=== PATIENT | female | born 1940 | race Caucasian/White ===

== ENCOUNTER 2017-03-02 22:17 | Inpatient (IN) | payer OTHER ==
[~2017-03-02] VITALS: Ht 162.6 cm; Wt 75.4 kg
[2017-03-02] MEDS ORDERED: morphine 4 MG/ML VIAL IV STA (23:24)
[2017-03-02] MEDS ORDERED: ONDANSETRON 4 MG INJ IV STA (23:24)
[2017-03-02] MEDS ORDERED: SOD CHLORIDE 0.9% 500 ML IV STA (23:24)
--- NOTE | 2017-03-02 23:33 | ERD ---
ER Documentation Chief Complaint Chief Complaint bib self, cc: abdominal pain, diarrhea, has atypical crohn's disease HPI Patient is a 76-year-old female who presents with sudden onset, constant, moderate abdominal distention starting 3 hours ago and associated with epigastric pain and 2 episodes of vomiting. She denies back pain, fever. She denies bloody emesis. She reports vomiting up her dinner. She states that she has not had a bowel movement in 3 days and does not think that she has been passing gas. She has history of Crohn's disease, which began after a C. difficile infection 2 years ago. ROS All systems reviewed and are negative except as per history of present illness. Allergies Allergies: Coded Allergies: No Known Allergy (Unverified , 03/02/17) PMhx/Soc Past medical history: Hypothyroidism, C. difficile colitis, Crohn's disease, DVT Past surgical history: Hysterectomy Social history: Denies tobacco or alcohol History of Surgery: No Anesthesia Reaction: No Hx Neurological Disorder: No Hx Respiratory Disorders: No Hx Cardiac Disorders: No Hx Psychiatric Problems: Yes (Depression) Hx Miscellaneous Medical Probl: Yes (Crohn's disease ) Hx Alcohol Use: No Hx Substance Use: No Hx Tobacco Use: No Smoking Status: Never smoker FmHx Family History: No coronary disease, No diabetes Physical Exam Vitals Vital Signs Date Time Temp Pulse Resp B/P Pulse Ox O2 Delivery O2 Flow Rate FiO2 03/03/17 02:40 78 18 122/70 100 Room Air 03/03/17 00:40 82 16 128/72 100 Room Air 03/02/17 22:22 98.5 81 18 132/60 100 Physical Exam Const: Alert, no acute distress Head: Atraumatic Eyes: Normal Conjunctiva, No pallor, no icterus ENT: Normal External Ears, Nose and Mouth. Moist mucous membranes Neck: Full range of motion..~ No meningismus. Resp: Clear to auscultation bilaterally, No wheezes, no rales Cardio: Regular rate and rhythm, no murmurs Abd: Soft, Tender in the epigastrium only, mildly distended, no rebound or guarding Skin: No petechiae or rashes Back: No midline or flank tenderness Ext: No cyanosis, or edema Neur: Awake and alert Psych: Normal Mood and Affect Result Diagram: 03/02/17 2340 10/21/17 2340 Results 24 hrs Laboratory Tests Test 03/02/17 23:40 03/02/17 23:45 White Blood Count 15.810^3/ul Red Blood Count 5.0710^6/ul Hemoglobin 14.9g/dl Hematocrit 45.2% Mean Corpuscular Volume 89.2fl Mean Corpuscular Hemoglobin 29.4pg Mean Corpuscular Hemoglobin Concent 33.0g/dl Red Cell Distribution Width 13.6% Platelet Count 32126^3/UL Mean Platelet Volume 9.8fl Neutrophils % 85.9% Lymphocytes % 5.8% Monocytes % 7.2% Eosinophils % 0.3% Basophils % 0.3% Nucleated Red Blood Cells % 0.0/100WBC Neutrophils # 13.610^3/ul Lymphocytes # 0.910^3/ul Monocytes # 1.110^3/ul Eosinophils # 0.010^3/ul Basophils # 0.110^3/ul Nucleated Red Blood Cells # 0.010^3/ul Sodium Level 141mmol/L Potassium Level 3.2mmol/L Chloride Level 99mmol/L Carbon Dioxide Level 35mmol/L Anion Gap 10 Blood Urea Nitrogen 22mg/dl Creatinine 0.90mg/dl Glucose Level 117mg/dl Calcium Level 10.1mg/dl Total Bilirubin 0.8mg/dl Direct Bilirubin 0.00mg/dl Indirect Bilirubin 0.8mg/dl Aspartate Amino Transf (AST/SGOT) 120IU/L Alanine Aminotransferase (ALT/SGPT) 75IU/L Alkaline Phosphatase 75IU/L Total Protein 7.7g/dl Albumin 4.2g/dl Globulin 3.50g/dl Albumin/Globulin Ratio 1.20 Lipase 52149J/L Urine Color YELLOW Urine Clarity CLEAR Urine pH 5.0 Urine Specific [place] 1.014 Urine Ketones NEGATIVEmg/dL Urine Nitrite NEGATIVEmg/dL Urine Bilirubin NEGATIVEmg/dL Urine Urobilinogen 1+mg/dL Urine Leukocyte Esterase 3+Yue/ul Urine Microscopic RBC 4/HPF Urine Microscopic WBC 31/HPF Urine Hemoglobin 1+mg/dL Urine Glucose NEGATIVEmg/dL Urine Total Protein NEGATIVEmg/dl Current Medications Medications (Trade) Dose Ordered Sig/Mirna Route PRN Reason Start Time Stop Time Status Last Admin Dose Admin Sodium Chloride (NS) 500 ml @ 500 mls/hr Q1H STAT IV 03/02/17 23:24 03/03/17 00:23 DC 03/03/17 00:06 Morphine Sulfate (morphine) 4 mg ONCE STAT IV 03/02/17 23:24 03/02/17 23:31 DC 03/03/17 00:06 Ondansetron HCl (Zofran Inj) 4 mg ONCE STAT IV 03/02/17 23:24 03/02/17 23:31 DC 03/03/17 00:06 Pantoprazole (Protonix Iv) 40 mg ONCE ONCE IV 03/03/17 00:00 03/03/17 00:01 DC 03/03/17 00:06 IV Flush 10 ml 10 ml STK-MED ONCE .ROUTE 03/03/17 00:27 03/03/17 00:28 DC 03/03/17 01:20 Sodium Chloride (NS) 100 ml @ ud STK-MED ONCE .ROUTE 03/03/17 00:27 03/03/17 00:28 DC 03/03/17 01:20 Iohexol 150 ml 150 ml STK-MED ONCE .ROUTE 03/03/17 00:27 03/03/17 00:28 DC 03/03/17 01:20 Ceftriaxone Sodium (Rocephin) 50 ml @ 100 mls/hr ONCE ONCE IVPB 03/03/17 03:00 03/03/17 03:29 DC 03/03/17 03:33 Procedures/MDM EKG read by me: Time 2338, rate 70 Rhythm: Normal sinus [place]: Normal Intervals: Normal ST-T waves: no ischemic changes Ectopy: No Q-waves: No Impression: No evidence of ischemia or arrhythmia MDM: Patient is a 76-year-old female who presents with acute abdominal pain and distention. Given her abdominal tenderness on exam, the skin was performed and shows evidence of pancreatitis with dilated common bile duct. There is no evidence of cholecystitis. Lipase is elevated, consistent with acute pancreatitis. She also has evidence of urinary tract infection on UTI. She was given IV fluids, made n.p.o., and given a dose of Rocephin. Urine culture was sent. Case was discussed with Dr. Dong, surgeon professor of environmental studies, who will see the patient. She will be admitted to [facility] for further management. She has stable vital signs, and is clinically well-appearing. She is given IV potassium repletion for hypokalemia, likely due to vomiting. Departure Diagnosis: Primary Impression: Gallstone pancreatitis Additional Impressions: Choledocholithiasis Elevated INR Hypokalemia Urinary tract infection Urinary tract infection type: acute cystitis Hematuria presence: without hematuria Qualified Code: N30.00 - Acute cystitis without hematuria Condition: Stable JEANE AGUSTIN MD Mar 02, 2017 23:33
[2017-03-03] MEDS ORDERED: PANTOPRAZOLE 40 MG INJ IV ONE
[2017-03-03] MEDS ORDERED: IOHEXOL 300MG/ML 150 ML BTL ONE (00:27)
[2017-03-03] MEDS ORDERED: SOD CHLORIDE 0.9% 100 ML ONE (00:27)
[2017-03-03 00:39] LABS: BASOPHIL # 0.1 10^3/ul (0.0-0.1); BASOPHILS % 0.3 % (0.0-2.0); EOSINOPHILS % 0.3 % (0.0-7.0); HEMATOCRIT 45.2 % (37.0-47.0); HEMOGLOBIN 14.9 g/dl (12.0-16.0); LYMPHOCYTES # 0.9 10^3/ul (0.8-2.9); LYMPHOCYTES % 5.8 % (15.0-51.0); MEAN CORPUSCULAR HEMOGLOBIN 29.4 pg (29.0-33.0); MEAN CORPUSCULAR VOLUME 89.2 fl (82.0-101.0); MEAN PLATELET VOLUME 9.8 fl (7.4-10.4); MONOCYTE # 1.1 10^3/ul (0.3-0.9); MONOCYTES % 7.2 % (0.0-11.0); NEUTROPHIL # 13.6 10^3/ul (1.6-7.5); NEUTROPHILS % 85.9 % (39.0-77.0); PLATELET COUNT 245 10^3/UL (140-415); RED BLOOD COUNT 5.07 10^6/ul (4.20-5.40); RED CELL DISTRIBUTION WIDTH 13.6 % (11.5-14.5); WHITE BLOOD COUNT 15.8 10^3/ul (4.8-10.8)
[2017-03-03 00:51] LABS: ALBUMIN 4.2 g/dl (3.3-4.9); ALBUMIN/GLOBULIN RATIO 1.2; BILIRUBIN,INDIRECT 0.8 mg/dl (0-1.1); BILIRUBIN,TOTAL 0.8 mg/dl (0.2-1.3); CALCIUM 10.1 mg/dl (8.4-10.2); CREATININE 0.9 mg/dl (0.44-1.00); POTASSIUM 3.2 mmol/L (3.5-5.1); TOTAL PROTEIN 7.7 g/dl (6.1-8.1)
[2017-03-03 00:52] LABS: ADD UMIC YES; UR ASCORBIC ACID NEGATIVE (NEGATIVE); UR BILIRUBIN (Dip) NEGATIVE (NEGATIVE); UR BLOOD (Dip) 1+ mg/dL (NEGATIVE); UR CLARITY CLEAR (CLEAR); UR COLOR YELLOW (YELLOW); UR GLUCOSE (Dip) NEGATIVE (NEGATIVE); UR KETONES (Dip) NEGATIVE (NEGATIVE); UR LEUKOCYTE ESTERASE (Dip) 3+ Leu/ul (NEGATIVE); UR NITRITE (Dip) NEGATIVE (NEGATIVE); UR RBC 4 /HPF (0-5); UR SPECIFIC GRAVITY (Dip) 1.014 (1.003-1.030); UR TOTAL PROTEIN (Dip) NEGATIVE (NEGATIVE); UR UROBILINOGEN (Dip) 1+ mg/dL (NEGATIVE)
--- NOTE | 2017-03-03 02:01 | RADRPT ---
PROCEDURE: CT Abdomen and Pelvis with contrast. CLINICAL INDICATION: Abdominal pain. TECHNIQUE: A CT scan of the abdomen and pelvis was performed with intravenous contrast. The patie nt was scanned following the uncomplicated intravenous administration of 90 cc of Omnipaque-300. Co rodriguez and sagittal reformatted images were obtained from the axial source images. Images were review ed on a high-resolution PACS workstation. CTDIvol: 10.97 mGy. DLP: 657.96 mGy-cm. One or more of the following dose reduction techniques were used: - Automated exposure control. - Adjustment of the mA and/or kV according to patient size. - Use of iterative reconstruction technique. COMPARISON: None. FINDINGS: There are mild atelectatic changes in the lower lungs. The liver is unremarkable. There are stones in the gallbladder. The gallbladder is distended but the re is no gallbladder wall thickening. There is intrahepatic and extrahepatic biliary ductal dilatati on (CBD: 1.0 cm ). The spleen is not enlarged. There is infiltraton of the peripancreatic fat, suggestive of pancreatitis. No pancreas hypoenhancem ent is identified to suggest pancreas necrosis. The pancreatic duct is not dilated. No pseudocyst is identified. The peripancreatic vessels are patent without evidence of aneurysm formation. The kidneys are normal in size. There is no perinephric fat stranding. No hydronephrosis is seen. Th e adrenal glands are unremarkable. The small and large bowel are normal in caliber. There is no bowel wall thickening. There is moderat e descending and sigmoid colon diverticulosis. The appendix is not identified. Artifact from bilateral hip arthroplasties limits evaluation of the lower pelvic structures. The ur inary bladder is unremarkable. The patient is status post hysterectomy. No adnexal mass is seen. No lymphadenopathy is identified. There is no ascites. No pneumoperitoneum is seen. There are mild a rterial calcifications. There is an IVC filter in place with extracaval penetration of the filter ti sharyn. No suspicious osseous lesion is idenitified. There is mild to moderate dextroscoliosis and spinal sp ondylosis. IMPRESSION: 1. Distended gallbladder containing gallstones. There is no evidence of cholecystitis. 2. Intrahepatic and extrahepatic biliary ductal dilatation (CBD: 1.0 cm). Correlation with bilirubi n levels is recommended. This could be further evaluated with MRCP or ERCP and endoscopic ultrasound , as clinically warranted. 3. Peripancreatic fat infiltration, suggestive of pancreatitis. Correlation with serum amylase and lipase levels is recommended. There is no pancreatic ductal dilatation. 4. Moderate descending and sigmoid colon diverticulosis. 5. Status post hysterectomy and bilateral hip arthroplasties. 6. Mild atherosclerotic arterial calcifications. 7. IVC filter in place with extracaval penetration of the filter tines. RPTAT: HTAR .Michael Gonzalez MD, MD Date Time Electronically viewed and signed by .Michael Gonzalez MD, MD on 03/03/2017 02:01 .R/
[2017-03-03] MEDS ORDERED: CEFTRIAXONE 1 GM/50 ML (PMX) 50 ML IVPB ONE (03:00)
[2017-03-03] MEDS ORDERED: POTASSIUM CHLORIDE 20 MEQ in SOD CHLORIDE 0.9% 100 ML IVPB ONE (03:30)
[2017-03-03] MEDS ORDERED: SOD CHLORIDE 0.9% 1,000 ML IV ONE (03:30)
[2017-03-03] MEDS ORDERED: ONDANSETRON 4 MG INJ IV PRN ×2 (03:30→06:00)
[2017-03-03] MEDS ORDERED: ACETAMINOPHEN 325 MG TAB PO PRN ×2 (03:30→06:00)
[2017-03-03 04:33] VITALS: TEMP 98.4
[2017-03-03 04:45] VITALS: BP 124/57; PULSE 64; RESP 16; Ht 162.6 cm; Wt 75.4 kg
[2017-03-03 05:04] LABS: INR 2.53; PROTIME 27.6 Sec (12.2-14.2); PT RATIO 2.2
[2017-03-03 05:05] LABS: PARTIAL THROMBOPLASTIN TIME 31.3 Sec (25.0-35.0)
[2017-03-03] MEDS ORDERED: SOD CHLORIDE 0.9% 1,000 ML IV SCH ×3 (05:31→18:00)
[2017-03-03] MEDS ORDERED: DOCUSATE SODIUM 100 MG CAP PO PRN (06:00)
[2017-03-03] MEDS ORDERED: PANTOPRAZOLE 40 MG INJ IV SCH (06:00)
[2017-03-03] MEDS ORDERED: BISACODYL (EC) 5 MG TAB PO PRN (06:00)
[2017-03-03] MEDS ORDERED: NACL 0.9% 3 ML SYG IV SCH (06:00)
[2017-03-03] MEDS: HYDROmorphONE 0.5 MG/0.5 ML SYG IV PRN ×2 (06:41→20:20)
--- NOTE | 2017-03-03 07:11 | HP ---
Date/Time of Note Date/Time of Note DATE: 03/03/17 TIME: 07:10 Assessment/Plan VTE Prophylaxis VTE Prophylaxis Intervention: SCD's Lines/Catheters IV Catheter Type (from [facility]): Peripheral IV Assessment/Plan Chief Complaint/Hosp Course This is a 76 year female being admitted to the [facility] floor for: #1 suspected gallstone pancreatitis: Patient has gallstones in the gallbladder, bile duct dilatation and pancreatitis. Lipase is 55,000 bilirubin is within normal values there is some elevation of LFTs. At the current time we will treat with aggressive fluid hydration of normal saline at 200 cc an hour. Will provide Dilaudid for IV pain control. Will consult GI. Will order an MRCP of the abdomen. Will check a lipid panel. A1c. #2 Leukocytosis: White blood cell count is 15,000. Likely secondary to #1. There is no signs of cholecystitis on the CAT scan. And she is afebrile. We will continue to monitor this. #3 Crohn's disease: Stable. Will need to confirm patient's home medications and restart as indicated #4 protein S deficiency: We will check INR daily. Will need to confirm patient' s home doses and restart medication. Patient needs to have a procedure will need to confirm with GI/general surgery for this. #5 hyperthyroidism: Again we will need to confirm patient's home medications and restart as indicated. Will check a TSH level. #6 DVT GI prophylaxis: SCDs, acid abiel. Will need to confirm patient's Coumadin dosage and restart as indicated. Further treatment strategy will be implemented as per the clinical course Problems: HPI/ROS Admit Date/Time Admit Date/Time Mar 03, 2017 at 03:27 Hx of Present Illness Chief complaint: Epigastric pain, abdominal distention Patient is a 76-year-old female who presents with sudden onset, constant, moderate abdominal distention starting 3 hours ago and associated with epigastric pain and 2 episodes of vomiting. She denies back pain, fever. She denies bloody emesis. She reports vomiting up her dinner. She states that she has not had a bowel movement in 3 days and does not think that she has been passing gas. She has history of Crohn's disease, which began after a C. difficile infection 2 years ago. Allergies: NKDA Medications: See MARK QUIROZ Const: As per HPI Eyes : No pain discharge or redness or change in visual acuity ENT: No pain, sore throat, congestion, congestion, dysphagia or discharge Respiratory: No shortness of breath, cough, sputum, wheezing, or pleuritic pain Cardiovascular: No chest pain, palpitation, PND, or edema GI : As per HPI Genitourinary: No dysuria, hematuria, flank pain , discharge or CVA tenderness Musculoskeletal: No joint pain, back pain, neck pain, restricted range of motion in neck or joints Skin: No rash, bruising or hives Neuro: No headache, dizziness, syncope, seizure, focal weakness Endocrine: No polyuria, polydipsia, temperature intolerance Psych: No hallucination, depression, anxiety or suicidal ideation PMH/Family/Social Past Medical History Crohn's disease, protein S deficiency, history of PE/DVT, gastric ulcer, hyperthyroidism, arthritis, history of fibroid Past Surgical History Bilateral hip replacement, hysterectomy, right knee surgery Family History Significant Family History: no pertinent family hx Social History Drinks daily 1 shot of whiskey. Smoking Status: Never smoker Drug Use: none Exam/Review of Systems Vital Signs Vitals Vital Signs Date Time Temp Pulse Resp B/P Pulse Ox O2 Delivery O2 Flow Rate FiO2 03/03/17 04:45 97.8 64 16 124/57 97 Room Air Exam Exam General: This is a pleasant 76-year-old female lying in bed in mild distress from pain HEENT: Atraumatic, normocephalic. The pupils are equal, round and reactive. Extraocular motor are intact Neck: Supple with full range of motion. No rigidity or meningismus Chest: Nontender Lungs: Clear to auscultation bilaterally no crackles rales or wheezing Heart: Normal S1-S2, Regular rhythm and rate. No murmur, S3, or S4 Abdomen: Soft, mild distention, moderate tenderness to palpation, hypoactive bowel sounds Extremities: Normal to inspection, no edema no cyanosis Neurologic: Normal mental status, speech normal, cranial nerves II through XII are intact, motor and sensory are intact, no focal weakness Additional Comments PROCEDURE: CT Abdomen and Pelvis with contrast. CLINICAL INDICATION: Abdominal pain. TECHNIQUE: A CT scan of the abdomen and pelvis was performed with intravenous contrast. The patient was scanned following the uncomplicated intravenous administration of 90 cc of Omnipaque-300. Coronal and sagittal reformatted images were obtained from the axial source images. Images were reviewed on a high-resolution PACS workstation. CTDIvol: 10.97 mGy. DLP: 657.96 mGy-cm. One or more of the following dose reduction techniques were used: - Automated exposure control. - Adjustment of the mA and/or kV according to patient size. - Use of iterative reconstruction technique. COMPARISON: None. FINDINGS: There are mild atelectatic changes in the lower lungs. The liver is unremarkable. There are stones in the gallbladder. The gallbladder is distended but there is no gallbladder wall thickening. There is intrahepatic and extrahepatic biliary ductal dilatation (CBD: 1.0 cm ). The spleen is not enlarged. There is infiltraton of the peripancreatic fat, suggestive of pancreatitis. No pancreas hypoenhancement is identified to suggest pancreas necrosis. The pancreatic duct is not dilated. No pseudocyst is identified. The peripancreatic vessels are patent without evidence of aneurysm formation. The kidneys are normal in size. There is no perinephric fat stranding. No hydronephrosis is seen. The adrenal glands are unremarkable. The small and large bowel are normal in caliber. There is no bowel wall thickening. There is moderate descending and sigmoid colon diverticulosis. The appendix is not identified. Artifact from bilateral hip arthroplasties limits evaluation of the lower pelvic structures. The urinary bladder is unremarkable. The patient is status post hysterectomy. No adnexal mass is seen. No lymphadenopathy is identified. There is no ascites. No pneumoperitoneum is seen. There are mild arterial calcifications. There is an IVC filter in place with extracaval penetration of the filter tines. No suspicious osseous lesion is idenitified. There is mild to moderate dextroscoliosis and spinal spondylosis. IMPRESSION: 1. Distended gallbladder containing gallstones. There is no evidence of cholecystitis. 2. Intrahepatic and extrahepatic biliary ductal dilatation (CBD: 1.0 cm). Correlation with bilirubin levels is recommended. This could be further evaluated with MRCP or ERCP and endoscopic ultrasound, as clinically warranted. 3. Peripancreatic fat infiltration, suggestive of pancreatitis. Correlation with serum amylase and lipase levels is recommended. There is no pancreatic ductal dilatation. 4. Moderate descending and sigmoid colon diverticulosis. 5. Status post hysterectomy and bilateral hip arthroplasties. 6. Mild atherosclerotic arterial calcifications. 7. IVC filter in place with extracaval penetration of the filter tines. RPTAT: HTAR .Michael Gonzalez MD, MD Date Time Electronically viewed and signed by .Michael Gonzalez MD, on 03/03/2017 02:01 .R/ CC: JEANE AGUSTIN MD Labs Result Diagram: 03/02/17 2340 03/02/17 2340 Medications Medications Current Medications Sodium Chloride (NS) 1,000 ml @ 175 mls/hr Q5H43M IV ; Start 03/03/17 at 05:31 ; Status UNV Ondansetron HCl (Zofran Inj) 4 mg Q6H PRN IV NAUSEA AND/OR VOMITING; Start at 06:00; Status UNV Acetaminophen (Tylenol Tab) 650 mg Q6H PRN PO PAIN LEVEL 1-3 OR FEVER; Start 03/03/17 at 06:00; Status UNV Hydromorphone HCl (Dilaudid) 0.5 mg Q4H PRN IV SEVERE PAIN LEVEL 7-10; Start 03/03/17 at 06:00; Status UNV Docusate Sodium (Colace) 100 mg Q12H PRN PO CONSTIPATION; Start 03/03/17 at 06 :00; Status UNV Bisacodyl (Dulcolax) 5 mg DAILY PRN PO CONSTIPATION; Start 03/03/17 at 06:00; Status UNV Pantoprazole (Protonix Iv) 40 mg DAILY@06 IV ; Start 03/03/17 at 06:00; Status UNV BETY CUELLAR Mar 03, 2017 07:11
--- NOTE | 2017-03-03 07:33 | CONS ---
Date/Time of Note Date/Time of Note DATE: 03/03/17 TIME: 07:27 Assessment/Plan Assessment/Plan Chief Complaint/Hosp Course Impression: 1. gallstone pancreatitis 2. r/o CBD or pancreatic duct stone 3. UTI 4. epigastric pain Recommendations: 1. f/u MRCP results 2. IVF 3. NPO 4. most of time, treatment of gallstone pancreatitis even if there is an obstructing stone is conservative therapy. ERCP not indicated in uncomplicated cases due to worries of post-ERCP pancreatitis which can worsen the acute pancreatitis. ERCP is indicated only if there is an obstructing stone AND lipase worsening. 5. Dr. Mayo to resume care of this patient tomorrow. Problems: Consultation Date/Type/Reason Admit Date/Time Mar 03, 2017 at 03:27 Date of Consultation: Mar 03, 2017 Type of Consultation: GI Reason for Consultation gallstone pancreatitis Hx of Present Illness 76-year-old female who is admitted for severe epigastric pain and abdominal distension. She presents with sudden onset, constant, moderate abdominal distention starting 3 hours ago and associated with epigastric pain and 2 episodes of vomiting. No back pain, fever. She denies bloody emesis. She reports vomiting up her dinner. She states that she has not had a bowel movement in 3 days and does not think that she has been passing gas. She has history of Crohn's disease, which began after a C. difficile infection 2 years ago. No melena, coffee ground emesis, hematemesis, hematochezia. All point ros administered, pertinent positives and negatives in HPI otherwise negative. Past Medical History C. diff colitis, Crohn's disease, DVT Medical History: hypothyroid, pancreatitis Past Surgical History hysterectomy Family History Significant Family History: no pertinent family hx Social History Alcohol Use: none Smoking Status: Never smoker Drug Use: none Exam/Review of Systems Vital Signs Vitals Vital Signs Date Time Temp Pulse Resp B/P Pulse Ox O2 Delivery O2 Flow Rate FiO2 03/03/17 04:45 97.8 64 16 124/57 97 Room Air Exam Constitutional: alert, obese, oriented, well developed Psych: nl mood/affect, no complaints Head: atraumatic, normocephalic Eyes: EOMI, nl conjunctiva, nl lids, nl sclera ENMT: mucosa pink and moist, nl external ears & nose, nl lips & teeth, nl nasal mucosa & septum Neck: non-tender, supple Respiratory: clear to auscultation, normal air movement Cardiovascular: nl pulses, regular rate and rhythm Gastrointestinal: bowel sounds, soft, tender (epigastric) Musculoskeletal: nl extremities to inspection, nl gait and stance Extremities: normal pulses Neurological: nl mental status, nl speech, nl strength Results Result Diagram: 03/02/17 2340 03/02/17 2340 Results 24 hrs Laboratory Tests Test 03/02/17 23:40 03/02/17 23:45 03/03/17 04:38 White Blood Count 15.8 H Red Blood Count 5.07 Hemoglobin 14.9 Hematocrit 45.2 Mean Corpuscular Volume 89.2 Mean Corpuscular Hemoglobin 29.4 Mean Corpuscular Hemoglobin Concent 33.0 Red Cell Distribution Width 13.6 Platelet Count 245 Mean Platelet Volume 9.8 Neutrophils % 85.9 H Lymphocytes % 5.8 L Monocytes % 7.2 Eosinophils % 0.3 Basophils % 0.3 Nucleated Red Blood Cells % 0.0 Neutrophils # 13.6 H Lymphocytes # 0.9 Monocytes # 1.1 H Eosinophils # 0.0 Basophils # 0.1 Nucleated Red Blood Cells # 0.0 Sodium Level 141 Potassium Level 3.2 L Chloride Level 99 Carbon Dioxide Level 35 H Anion Gap 10 Blood Urea Nitrogen 22 H Creatinine 0.90 Glucose Level 117 Calcium Level 10.1 Total Bilirubin 0.8 Direct Bilirubin 0.00 Indirect Bilirubin 0.8 Aspartate Amino Transf (AST/SGOT) 120 H Alanine Aminotransferase (ALT/SGPT) 75 H Alkaline Phosphatase 75 Total Protein 7.7 Albumin 4.2 Globulin 3.50 H Albumin/Globulin Ratio 1.20 Lipase 02407 H Urine Color YELLOW Urine Clarity CLEAR Urine pH 5.0 Urine Specific [place] 1.014 Urine Ketones NEGATIVE Urine Nitrite NEGATIVE Urine Bilirubin NEGATIVE Urine Urobilinogen 1+ H Urine Leukocyte Esterase 3+ H Urine Microscopic RBC 4 Urine Microscopic WBC 31 H Urine Hemoglobin 1+ H Urine Glucose NEGATIVE Urine Total Protein NEGATIVE Prothrombin Time 27.6 H Prothrombin Time Ratio 2.2 INR International Normalized Ratio 2.53 Activated Partial Thromboplast Time 31.3 Medications Medications Current Medications Sodium Chloride (NS) 1,000 ml @ 200 mls/hr Q5H IV Last administered on t 06:22; Admin Dose 175 MLS/HR; Start 03/03/17 at 05:31 Ondansetron HCl (Zofran Inj) 4 mg Q6H PRN IV NAUSEA AND/OR VOMITING; Start at 06:00 Acetaminophen (Tylenol Tab) 650 mg Q6H PRN PO PAIN LEVEL 1-3 OR FEVER; Start 03/03/17 at 06:00 Hydromorphone HCl (Dilaudid) 0.5 mg Q4H PRN IV SEVERE PAIN LEVEL 7-10 Last administered on 03/03/17 06:41; Admin Dose 0.5 MG; Start 03/03/17 at 06:00 Docusate Sodium (Colace) 100 mg Q12H PRN PO CONSTIPATION; Start 03/03/17 at 06 :00 Bisacodyl (Dulcolax) 5 mg DAILY PRN PO CONSTIPATION; Start 03/03/17 at 06:00 Pantoprazole 40 mg 40 mg DAILY@06 IV Last administered on 03/03/17 06:22; Admin Dose 40 MG; Start 03/03/17 at 06:00 Ciprofloxacin/ Dextrose (Cipro Ivpb) 200 ml @ 200 mls/hr Q12 IVPB ; Start at 09:00 THELMA HAHN MD Mar 03, 2017 07:33
[2017-03-03 07:35] VITALS: BP 92/49; RESP 18
[2017-03-03] MEDS ORDERED: CIPROFLOXACIN 400MG/D5W 200 ML IVPB SCH (09:00)
[2017-03-03 09:14] LABS: CHOL/HDL RATIO 2.4 RATIO; MAGNESIUM 1.9 mg/dl (1.7-2.5)
--- NOTE | 2017-03-03 09:19 | RADRPT ---
PROCEDURE: XR Chest. CLINICAL INDICATION: Shortness of breath. TECHNIQUE: Single frontal view. COMPARISON: None. FINDINGS: There is mild atelectasis at the lung bases. The lungs are otherwise clear. The heart size is normal. There is no pleural effusion. There is no pneumothorax. IMPRESSION: 1. Mild atelectasis at the lung bases. 2. Otherwise normal chest x-ray. RPTAT: QQ .Bull Yates MD, MD Date Time Electronically viewed and signed by .Bull Yates MD, on 03/03/2017 09:19 .R/
[2017-03-03] MEDS ORDERED: POTASSIUM CHLORIDE 20 MEQ in LACTATED RINGER'S 1,000 ML IV SCH (09:30)
[2017-03-03 09:45] LABS: THYROID STIMULATING HORMONE 0.375 MIU/L (0.465-4.680)
[2017-03-03] MEDS ORDERED: LORAZEPAM 2 MG INJ IV ONE (10:30)
--- NOTE | 2017-03-03 14:21 | RADRPT ---
PROCEDURE: MR Abdomen and MRCP. CLINICAL INDICATION: Right upper quadrant pain. TECHNIQUE: MRI abdomen without contrast and MRCP was performed on a 1.5 [place]ira high field scanner. Routine axial, sagittal and coronal sequences were obtained. 3-D coronal rotating MIP images of the biliary tree are available for review. COMPARISON: None available FINDINGS: MRI Abdomen: The exam is significantly limited secondary to respiratory motion artifact. The liver is normal in size and homogeneous in signal intensity. No liver mass lesion or intrahepatic biliary dilatation is seen. The spleen is normal in size and homogeneous in signal intensity. The stomach is partially collapsed but grossly unremarkable. The pancreas is unremarkable, as best seen. The kidneys are unremarkable. There is no evidence of hydronephrosis, hydroureter, renal mass, or r enal calculi. The adrenal glands and kidneys are symmetric and appear normal. The aorta is of normal caliber. There is no retroperitoneal lymphadenopathy. The bowel and mesentery, as visualized, are unremarkable. Small free fluid in the left pericolic gutter, around the spleen, Morison's pouch and around the inf erior aspect of the liver. MRCP: The gallbladder contains multiple sub centimeter gallstones. The biliary tree is not dilated. The common bile duct measures 7 mm to the level of the ampulla of V ater. No intrahepatic or extrahepatic biliary ductal dilatation is present. The pancreatic duct is unremarkable. IMPRESSION: 1. Significantly limited exam secondary to respiratory motion artifact. 2. Cholelithiasis, without definite evidence of cholecystitis or choledocholithiasis. 3. Small ascites in the upper quadrants of the abdomen. 4. Trace right pleural effusion. 5. Benign-appearing renal cysts measuring up to 9 mm. RPTAT: QQ .Matt Russ MD, MD Date Time Electronically viewed and signed by .Matt Russ MD, MD on 03/03/2017 14:20 .M/
[2017-03-03] MEDS ORDERED: HEPARIN 1000 UNITS/ML 10 ML INJ IV PRN ×2 (15:00)
[2017-03-03 15:28] LABS: BASOPHILS % 0.3 % (0.0-2.0); EOSINOPHILS # 0.1 10^3/ul (0.0-0.5); EOSINOPHILS % 1.5 % (0.0-7.0); HEMATOCRIT 37.8 % (37.0-47.0); HEMOGLOBIN 12.2 g/dl (12.0-16.0); LYMPHOCYTES # 0.9 10^3/ul (0.8-2.9); LYMPHOCYTES % 14.8 % (15.0-51.0); MEAN CORPUSCULAR HEMOGLOBIN 29.5 pg (29.0-33.0); MEAN CORPUSCULAR HGB CONC 32.3 g/dl (32.0-37.0); MEAN CORPUSCULAR VOLUME 91.3 fl (82.0-101.0); MEAN PLATELET VOLUME 9.6 fl (7.4-10.4); MONOCYTE # 0.4 10^3/ul (0.3-0.9); MONOCYTES % 7.1 % (0.0-11.0); NEUTROPHIL # 4.5 10^3/ul (1.6-7.5); PLATELET COUNT 160 10^3/UL (140-415); RED BLOOD COUNT 4.14 10^6/ul (4.20-5.40); RED CELL DISTRIBUTION WIDTH 13.8 % (11.5-14.5); WHITE BLOOD COUNT 5.9 10^3/ul (4.8-10.8)
[2017-03-03 15:43] LABS: INR 2.84; PROTIME 30.2 Sec (12.2-14.2); PT RATIO 2.4
[2017-03-03 15:44] LABS: PARTIAL THROMBOPLASTIN TIME 45.5 Sec (25.0-35.0)
[2017-03-03] MEDS ORDERED: NS + KCL 20 MEQ 1,000 ML IV SCH (16:30)
[2017-03-03] MEDS: HEPARIN 25000 UNITS/250 ML 250 ML IV SCH (16:53)
--- NOTE | 2017-03-03 17:05 | PN ---
Date/Time of Note Date/Time of Note DATE: 03/03/17 TIME: 16:46 Assessment/Plan VTE Prophylaxis VTE Prophylaxis Intervention: SCD's Lines/Catheters IV Catheter Type (from Nrsg): Peripheral IV Assessment/Plan Assessment/Plan 76 yo F with h/o IBD (Crohns), protein C and S deficiency admitted for abd pain , found to have pancreatitis. Etio 2/2 IBD v gallstone. #pancreatitis: IVFs, ADATas evidence suggests that early enteral feeding in setting of acute pancreatitis does not increase risk of adverse event re etio, gallstones v IBD. Both GI and gen surg on consult #gallstones/cholecystitis: no evidence of biliary obstruction or cholecystitis gen surg has pt technically on schedule for Saturday for lap nina pt has no hx CKD, Dm2, CHF, CAD, CVA. She is unsure if she can climb a flight of stairs without stopping 2/2 chronic hip pain .Defer further consideration for perioperative cardiac clearance at this time as pt and son uncertain if they want to pursue lap nina during this admission or as outpatient #protein C and S deficiency: per surgeon request will hold warfarin and start heparin drip for perioperative purposes. of note, if patient elects NOT to persue lap nina, would resume Coumadin at home dose of 1-2 mg PO daily #IBD: cont home prednisone (dose affirmed with Josemanuel) #hyperthyroid: TSH low, cont home methimazole #HTN: cont home BP meds #depression/insomnia/chronic pain: cont home baclofen, bupropion, tazadolene Exam/Review of Systems Vital Signs Vitals Vital Signs Date Time Temp Pulse Resp B/P Pulse Ox O2 Delivery O2 Flow Rate FiO2 03/03/17 07:35 97.7 64 18 92/49 97 03/03/17 04:45 Room Air Results Result Diagram: 03/03/17 1506 03/02/17 2340 Results 24 hrs Laboratory Tests Test 03/02/17 23:40 03/02/17 23:45 03/03/17 04:38 03/03/17 08:09 White Blood Count 15.8 H Red Blood Count 5.07 Hemoglobin 14.9 Hematocrit 45.2 Mean Corpuscular Volume 89.2 Mean Corpuscular Hemoglobin 29.4 Mean Corpuscular Hemoglobin Concent 33.0 Red Cell Distribution Width 13.6 Platelet Count 245 Mean Platelet Volume 9.8 Neutrophils % 85.9 H Lymphocytes % 5.8 L Monocytes % 7.2 Eosinophils % 0.3 Basophils % 0.3 Nucleated Red Blood Cells % 0.0 Neutrophils # 13.6 H Lymphocytes # 0.9 Monocytes # 1.1 H Eosinophils # 0.0 Basophils # 0.1 Nucleated Red Blood Cells # 0.0 Sodium Level 141 Potassium Level 3.2 L Chloride Level 99 Carbon Dioxide Level 35 H Anion Gap 10 Blood Urea Nitrogen 22 H Creatinine 0.90 Glucose Level 117 Calcium Level 10.1 Total Bilirubin 0.8 Direct Bilirubin 0.00 Indirect Bilirubin 0.8 Aspartate Amino Transf (AST/SGOT) 120 H Alanine Aminotransferase (ALT/SGPT) 75 H Alkaline Phosphatase 75 Total Protein 7.7 Albumin 4.2 Globulin 3.50 H Albumin/Globulin Ratio 1.20 Lipase 30516 H 25241 H Urine Color YELLOW Urine Clarity CLEAR Urine pH 5.0 Urine Specific [place] 1.014 Urine Ketones NEGATIVE Urine Nitrite NEGATIVE Urine Bilirubin NEGATIVE Urine Urobilinogen 1+ H Urine Leukocyte Esterase 3+ H Urine Microscopic RBC 4 Urine Microscopic WBC 31 H Urine Hemoglobin 1+ H Urine Glucose NEGATIVE Urine Total Protein NEGATIVE Prothrombin Time 27.6 H Prothrombin Time Ratio 2.2 INR International Normalized Ratio 2.53 Activated Partial Thromboplast Time 31.3 Hemoglobin A1c 5.6 Magnesium Level 1.9 Triglycerides Level 46 Cholesterol Level 151 LDL Cholesterol, Calculated 81 HDL Cholesterol 61 Cholesterol/HDL Ratio 2.4 Thyroid Stimulating Hormone (TSH) 0.375 L Test 03/03/17 15:06 White Blood Count 5.9 # Red Blood Count 4.14 L Hemoglobin 12.2 Hematocrit 37.8 Mean Corpuscular Volume 91.3 Mean Corpuscular Hemoglobin 29.5 Mean Corpuscular Hemoglobin Concent 32.3 Red Cell Distribution Width 13.8 Platelet Count 160 # Mean Platelet Volume 9.6 Neutrophils % 76.0 Lymphocytes % 14.8 L Monocytes % 7.1 Eosinophils % 1.5 Basophils % 0.3 Nucleated Red Blood Cells % 0.0 Neutrophils # 4.5 Lymphocytes # 0.9 Monocytes # 0.4 Eosinophils # 0.1 Basophils # 0.0 Nucleated Red Blood Cells # 0.0 Prothrombin Time 30.2 H Prothrombin Time Ratio 2.4 INR International Normalized Ratio 2.84 Activated Partial Thromboplast Time 45.5 H Medications Medications Current Medications Ondansetron HCl (Zofran Inj) 4 mg Q6H PRN IV NAUSEA AND/OR VOMITING; Start at 06:00 Acetaminophen (Tylenol Tab) 650 mg Q6H PRN PO PAIN LEVEL 1-3 OR FEVER; Start 03/03/17 at 06:00 Hydromorphone HCl (Dilaudid) 0.5 mg Q4H PRN IV SEVERE PAIN LEVEL 7-10 Last administered on 03/03/17 06:41; Admin Dose 0.5 MG; Start 03/03/17 at 06:00 Docusate Sodium (Colace) 100 mg Q12H PRN PO CONSTIPATION; Start 03/03/17 at 06 :00 Bisacodyl 5 mg 5 mg DAILY PRN PO CONSTIPATION; Start 03/03/17 at 06:00 Ciprofloxacin/ Dextrose 200 ml @ 200 mls/hr Q12 IVPB Last administered on 08:23; Admin Dose 200 MLS/HR; Start 03/03/17 at 09:00 Potassium Chloride/Sodium Chloride (NS-KCl 20 Meq) 1,000 ml @ 150 mls/hr Q6H40M IV ; Start 03/03/17 at 16:30 DANNA HURTADO MD Mar 03, 2017 17:04
[2017-03-03 19:15] VITALS: BP 113/53; RESP 19
--- NOTE | 2017-03-03 21:11 | CONS ---
Date/Time of Note Date/Time of Note DATE: 03/03/17 TIME: 20:49 Assessment/Plan Assessment/Plan Chief Complaint/Hosp Course abd pain Problems: (1) Acute gallstone pancreatitis Onset Date: ~ 03/01/2017 Status: Acute Comment: improving. MRCP shows gallstones in GB but no CBD stones; patient likely passed small stones causing pancreatitis. Abd pain unlikely due to Crohn's or UC and most likely etiology is gallstones in absence of EtOH drinking. MRCP not suggestive of persistent CBD stones though study not optimal per my discussion with radiologist. Patient requires laparoscopic cholecystectomy with intraoperative cholangiogram prior to discharge Place patient on heparin drip given history of hypercoagulability disorder Prot C/S deficiency and reverse coumadin with Vitamin K Clear liquid diet OK Once Lipase improved and abdominal pain resolved, will take for lap cholecystectomy with IOC, hopefully by Saturday Risks and benefits of surgical therapy explained to patient and son. They agreed to proceed with surgery after all questions were answered. Please make patient NPO after midnight Saturday for possible surgery on Saturday (2) Inflammatory bowel disease (ulcerative colitis) Status: Chronic Comment: wean steroids as tolerated for surgery May require stress dose steroids periop UC unlikely contributing to current symptoms of abd pain given lipase levels and CT scan Qualifiers: (3) Protein S deficiency Status: Chronic Comment: reverse coumadin and start heparin drip. Additional Assessment/Plan reverse warfarin heparin drip; hold 4 hours before surgery and restart POD 1 if hgb stable trend lipase Please minimize steroid use as pt will have surgery coming up. i have placed pt on clear liquid diet for now 50 min spent treating patient, discussing case with medicine, GI, and radiology colleagues, and answering all questions with patient at bedside and son overphone and coordinating plan with RN team and hospitalist service. Cont'd Hospitalization Reason: will require surgery for gallstone pancreatitis , prior to discharge Consultation Date/Type/Reason Admit Date/Time Mar 03, 2017 at 03:27 Date of Consultation: Mar 03, 2017 Type of Consultation: GENERAL SURGERY Reason for Consultation gallstone pancreatitis Referring Provider: BETY CUELLAR Hx of Present Illness 76 F p/w 2 days of LLQ abd pain accompanied with nausea vomiting. Denies f/c. Workup revealed gallstones and elevated lipase concerning for gallstone pancreatitis. MRCP shows no ductal defects and TBili is upper limit normal at 1.0. Surgery consultation was requested for lap cholecystectomy. Constitutional: poor po, requiring IVF, No chills, No diaphoresis, No febrile Eyes: no complaints ENT: no complaints Respiratory: no complaints Cardiovascular: No chest pain, No palpitations Gastrointestinal: decreased appetite, flatus, nausea, pain, passing stool, vomiting, No blood, No constipation, No diarrhea Genitourinary: No bleeding, No discharge, No dysuria, No flank pain, No hematuria Musculoskeletal: back pain, No neck pain Neurologic: no complaints Psychological: nl mood/affect, no complaints Immunologic: other (inflammatory bowel disease/UC) Past Medical History Medical History: hypothyroid, pancreatitis, other (ulcerative colitis/inflamm bowel dz for which pt is on Prednisone; C Diff; Prot C/S deficiency causing hypercoagulability) Past Surgical History total abd hysterectomy many years ago: lower midline incision; two total hip replacements (bilat) years ago Family History Significant Family History: no pertinent family hx Social History Alcohol Use: none Smoking Status: Never smoker Drug Use: none Other Social History son is next of kin Exam/Review of Systems Vital Signs Vitals Vital Signs Date Time Temp Pulse Resp B/P Pulse Ox O2 Delivery O2 Flow Rate FiO2 03/03/17 19:15 98.1 67 19 113/53 92 03/03/17 04:45 Room Air Laboratory Tests Test 03/02/17 23:40 03/03/17 15:06 Blood Urea Nitrogen 22mg/dl Carbon Dioxide Level 35mmol/L Chloride Level 99mmol/L Creatinine 0.90mg/dl Glucose Level 117mg/dl Hematocrit 45.2% 37.8% Hemoglobin 14.9g/dl 12.2g/dl Platelet Count 35946^3/UL 96602^3/UL Potassium Level 3.2mmol/L Sodium Level 141mmol/L White Blood Count 15.810^3/ul 5.910^3/ul Laboratory Tests Test 03/02/17 23:40 03/02/17 23:45 03/03/17 04:38 03/03/17 08:09 White Blood Count 15.8 H Red Blood Count 5.07 Hemoglobin 14.9 Hematocrit 45.2 Mean Corpuscular Volume 89.2 Mean Corpuscular Hemoglobin 29.4 Mean Corpuscular Hemoglobin Concent 33.0 Red Cell Distribution Width 13.6 Platelet Count 245 Mean Platelet Volume 9.8 Neutrophils % 85.9 H Lymphocytes % 5.8 L Monocytes % 7.2 Eosinophils % 0.3 Basophils % 0.3 Nucleated Red Blood Cells % 0.0 Neutrophils # 13.6 H Lymphocytes # 0.9 Monocytes # 1.1 H Eosinophils # 0.0 Basophils # 0.1 Nucleated Red Blood Cells # 0.0 Sodium Level 141 Potassium Level 3.2 L Chloride Level 99 Carbon Dioxide Level 35 H Anion Gap 10 Blood Urea Nitrogen 22 H Creatinine 0.90 Glucose Level 117 Calcium Level 10.1 Total Bilirubin 0.8 Direct Bilirubin 0.00 Indirect Bilirubin 0.8 Aspartate Amino Transf (AST/SGOT) 120 H Alanine Aminotransferase (ALT/SGPT) 75 H Alkaline Phosphatase 75 Total Protein 7.7 Albumin 4.2 Globulin 3.50 H Albumin/Globulin Ratio 1.20 Lipase 59113 H 66292 H Urine Color YELLOW Urine Clarity CLEAR Urine pH 5.0 Urine Specific [place] 1.014 Urine Ketones NEGATIVE Urine Nitrite NEGATIVE Urine Bilirubin NEGATIVE Urine Urobilinogen 1+ H Urine Leukocyte Esterase 3+ H Urine Microscopic RBC 4 Urine Microscopic WBC 31 H Urine Hemoglobin 1+ H Urine Glucose NEGATIVE Urine Total Protein NEGATIVE Prothrombin Time 27.6 H Prothrombin Time Ratio 2.2 INR International Normalized Ratio 2.53 Activated Partial Thromboplast Time 31.3 Hemoglobin A1c 5.6 Magnesium Level 1.9 Triglycerides Level 46 Cholesterol Level 151 LDL Cholesterol, Calculated 81 HDL Cholesterol 61 Cholesterol/HDL Ratio 2.4 Thyroid Stimulating Hormone (TSH) 0.375 L Test 03/03/17 15:06 White Blood Count 5.9 # Red Blood Count 4.14 L Hemoglobin 12.2 Hematocrit 37.8 Mean Corpuscular Volume 91.3 Mean Corpuscular Hemoglobin 29.5 Mean Corpuscular Hemoglobin Concent 32.3 Red Cell Distribution Width 13.8 Platelet Count 160 # Mean Platelet Volume 9.6 Neutrophils % 76.0 Lymphocytes % 14.8 L Monocytes % 7.1 Eosinophils % 1.5 Basophils % 0.3 Nucleated Red Blood Cells % 0.0 Neutrophils # 4.5 Lymphocytes # 0.9 Monocytes # 0.4 Eosinophils # 0.1 Basophils # 0.0 Nucleated Red Blood Cells # 0.0 Prothrombin Time 30.2 H Prothrombin Time Ratio 2.4 INR International Normalized Ratio 2.84 Activated Partial Thromboplast Time 45.5 H Exam Constitutional: alert, oriented Psych: nl mood/affect, No confusion Head: atraumatic, normocephalic Eyes: EOMI, PERRL, nl conjunctiva, nl lids, nl sclera, No icteric ENMT: nl external ears & nose, nl lips & teeth, nl nasal mucosa & septum Neck: non-tender, supple Respiratory: clear to auscultation, normal air movement Cardiovascular: nl pulses, regular rate and rhythm Gastrointestinal: nl liver, spleen, soft, surgical scars (lower midline), tender (LLQ), No distended, No firm, No hepatomegaly, No mass, No non-tender, No rebound or guarding Musculoskeletal: nl extremities to inspection, nl gait and stance Extremities: normal pulses Neurological: POOL HAND II-XII intact, nl mental status, nl speech, nl strength Skin: nl turgor, rash or lesions Results Result Diagram: 03/03/17 1506 03/02/17 2340 Results 24 hrs Laboratory Tests Test 03/02/17 23:40 03/02/17 23:45 03/03/17 04:38 03/03/17 08:09 White Blood Count 15.8 H Red Blood Count 5.07 Hemoglobin 14.9 Hematocrit 45.2 Mean Corpuscular Volume 89.2 Mean Corpuscular Hemoglobin 29.4 Mean Corpuscular Hemoglobin Concent 33.0 Red Cell Distribution Width 13.6 Platelet Count 245 Mean Platelet Volume 9.8 Neutrophils % 85.9 H Lymphocytes % 5.8 L Monocytes % 7.2 Eosinophils % 0.3 Basophils % 0.3 Nucleated Red Blood Cells % 0.0 Neutrophils # 13.6 H Lymphocytes # 0.9 Monocytes # 1.1 H Eosinophils # 0.0 Basophils # 0.1 Nucleated Red Blood Cells # 0.0 Sodium Level 141 Potassium Level 3.2 L Chloride Level 99 Carbon Dioxide Level 35 H Anion Gap 10 Blood Urea Nitrogen 22 H Creatinine 0.90 Glucose Level 117 Calcium Level 10.1 Total Bilirubin 0.8 Direct Bilirubin 0.00 Indirect Bilirubin 0.8 Aspartate Amino Transf (AST/SGOT) 120 H Alanine Aminotransferase (ALT/SGPT) 75 H Alkaline Phosphatase 75 Total Protein 7.7 Albumin 4.2 Globulin 3.50 H Albumin/Globulin Ratio 1.20 Lipase 15564 H 61087 H Urine Color YELLOW Urine Clarity CLEAR Urine pH 5.0 Urine Specific [place] 1.014 Urine Ketones NEGATIVE Urine Nitrite NEGATIVE Urine Bilirubin NEGATIVE Urine Urobilinogen 1+ H Urine Leukocyte Esterase 3+ H Urine Microscopic RBC 4 Urine Microscopic WBC 31 H Urine Hemoglobin 1+ H Urine Glucose NEGATIVE Urine Total Protein NEGATIVE Prothrombin Time 27.6 H Prothrombin Time Ratio 2.2 INR International Normalized Ratio 2.53 Activated Partial Thromboplast Time 31.3 Hemoglobin A1c 5.6 Magnesium Level 1.9 Triglycerides Level 46 Cholesterol Level 151 LDL Cholesterol, Calculated 81 HDL Cholesterol 61 Cholesterol/HDL Ratio 2.4 Thyroid Stimulating Hormone (TSH) 0.375 L Test 03/03/17 15:06 White Blood Count 5.9 # Red Blood Count 4.14 L Hemoglobin 12.2 Hematocrit 37.8 Mean Corpuscular Volume 91.3 Mean Corpuscular Hemoglobin 29.5 Mean Corpuscular Hemoglobin Concent 32.3 Red Cell Distribution Width 13.8 Platelet Count 160 # Mean Platelet Volume 9.6 Neutrophils % 76.0 Lymphocytes % 14.8 L Monocytes % 7.1 Eosinophils % 1.5 Basophils % 0.3 Nucleated Red Blood Cells % 0.0 Neutrophils # 4.5 Lymphocytes # 0.9 Monocytes # 0.4 Eosinophils # 0.1 Basophils # 0.0 Nucleated Red Blood Cells # 0.0 Prothrombin Time 30.2 H Prothrombin Time Ratio 2.4 INR International Normalized Ratio 2.84 Activated Partial Thromboplast Time 45.5 H Imaging Free Text/Dictation MRCP: 1. Significantly limited exam secondary to respiratory motion artifact. 2. Cholelithiasis, without definite evidence of cholecystitis or choledocholithiasis. 3. Small ascites in the upper quadrants of the abdomen. 4. Trace right pleural effusion. 5. Benign-appearing renal cysts measuring up to 9 mm. Medications Medications Current Medications Ondansetron HCl (Zofran Inj) 4 mg Q6H PRN IV NAUSEA AND/OR VOMITING; Start at 06:00 Acetaminophen (Tylenol Tab) 650 mg Q6H PRN PO PAIN LEVEL 1-3 OR FEVER; Start 03/03/17 at 06:00 Hydromorphone HCl (Dilaudid) 0.5 mg Q4H PRN IV SEVERE PAIN LEVEL 7-10 Last administered on 03/03/17t 20:20; Admin Dose 0.5 MG; Start 03/03/17 at 06:00 Docusate Sodium (Colace) 100 mg Q12H PRN PO CONSTIPATION; Start 03/03/17 at 06 :00 Bisacodyl (Dulcolax) 5 mg DAILY PRN PO CONSTIPATION; Start 03/03/17 at 06:00 Bupropion HCl (Wellbutrin Sr) 150 mg BID PO ; Start 03/03/17 at 21:00 Triamterene/HCTZ (Dyazide) 1 cap DAILY PO ; Start 03/04/17 at 09:00 Methimazole (Tapazole) 5 mg DAILY PO ; Start 03/04/17 at 09:00 Baclofen (Lioresal) 10 mg TID PO ; Start 03/03/17 at 21:00 Trazodone HCl (Desyrel) 50 mg HS PO ; Start 03/03/17 at 21:00 Prednisone 4 mg 4 mg DAILY PO ; Start 03/04/17 at 09:00 Sodium Chloride (NS) 1,000 ml @ 150 mls/hr Q6H40M IV ; Start 03/03/17 at 22:00 JT MOSS Mar 03, 2017 21:00
[2017-03-03] MEDS: traZODone 50 MG TAB PO SCH (21:28)
[2017-03-03] MEDS: BACLOFEN 10 MG TAB PO SCH (21:28)
[2017-03-03] MEDS: BUPROPION (SR) 150 MG TAB PO SCH (21:43)
[2017-03-03] MEDS: SOD CHLORIDE 0.9% 1,000 ML IV SCH (22:39)
[2017-03-04 00:15] LABS: INR 2.54; PROTIME 27.7 Sec (12.2-14.2); PT RATIO 2.2
[2017-03-04 00:50] LABS: PARTIAL THROMBOPLASTIN TIME > 180.0 Sec (25.0-35.0)
[2017-03-04 02:10] VITALS: BP 155/67; RESP 18
[2017-03-04] MEDS: SOD CHLORIDE 0.9% 1,000 ML IV SCH ×4 (06:11→19:20)
[2017-03-04 06:42] LABS: BASOPHILS % 0.5 % (0.0-2.0); EOSINOPHILS # 0.1 10^3/ul (0.0-0.5); EOSINOPHILS % 2.5 % (0.0-7.0); HEMATOCRIT 35.2 % (37.0-47.0); HEMOGLOBIN 11.4 g/dl (12.0-16.0); LYMPHOCYTES # 1.2 10^3/ul (0.8-2.9); LYMPHOCYTES % 28.9 % (15.0-51.0); MEAN CORPUSCULAR HEMOGLOBIN 29.7 pg (29.0-33.0); MEAN CORPUSCULAR HGB CONC 32.4 g/dl (32.0-37.0); MEAN CORPUSCULAR VOLUME 91.7 fl (82.0-101.0); MEAN PLATELET VOLUME 9.9 fl (7.4-10.4); MONOCYTE # 0.3 10^3/ul (0.3-0.9); MONOCYTES % 8.2 % (0.0-11.0); NEUTROPHIL # 2.4 10^3/ul (1.6-7.5); NEUTROPHILS % 59.7 % (39.0-77.0); PLATELET COUNT 132 10^3/UL (140-415); RED BLOOD COUNT 3.84 10^6/ul (4.20-5.40)
[2017-03-04 06:54] LABS: INR 2.33; PROTIME 25.8 Sec (12.2-14.2)
[2017-03-04 07:00] VITALS: BP 115/55; RESP 18
[2017-03-04 07:02] LABS: ALBUMIN 2.5 g/dl (3.3-4.9); ALBUMIN/GLOBULIN RATIO 0.92; BILIRUBIN,INDIRECT 0.9 mg/dl (0-1.1); BILIRUBIN,TOTAL 0.9 mg/dl (0.2-1.3); CREATININE 0.62 mg/dl (0.44-1.00); POTASSIUM 3.5 mmol/L (3.5-5.1); TOTAL PROTEIN 5.2 g/dl (6.1-8.1)
[2017-03-04 07:46] LABS: PARTIAL THROMBOPLASTIN TIME > 180.0 Sec (25.0-35.0)
[2017-03-04] MEDS: TRIAMTERENE/HCTZ (37.5-25) CAP PO SCH (08:04)
[2017-03-04] MEDS: BACLOFEN 10 MG TAB PO SCH ×3 (08:05→20:55)
[2017-03-04] MEDS: BUPROPION (SR) 150 MG TAB PO SCH ×2 (08:06→20:55)
[2017-03-04] MEDS: METHIMAZOLE 5 MG TAB PO SCH (08:06)
[2017-03-04] MEDS: predniSONE 1 MG TAB PO SCH (08:06)
[2017-03-04] MEDS: HYDROmorphONE 0.5 MG/0.5 ML SYG IV PRN ×3 (08:07→20:55)
[2017-03-04 08:54] LABS: INR 2.15; PROTIME 24.2 Sec (12.2-14.2); PT RATIO 1.9
[2017-03-04 09:38] LABS: PARTIAL THROMBOPLASTIN TIME > 180.0 Sec (25.0-35.0)
--- NOTE | 2017-03-04 10:14 | PN ---
Date/Time of Note Date/Time of Note DATE: 03/04/17 TIME: 10:07 Assessment/Plan VTE Prophylaxis VTE Prophylaxis Intervention: ambulation, SCD's Lines/Catheters IV Catheter Type (from Nrsg): Peripheral IV Assessment/Plan Chief Complaint/Hosp Course Assessment: Pancreatitis * MRCP without definite evidence of cholecystitis or choledocholithiasis positive for cholelithiasis UTI epigastric pain Plan Continue IVF Maintain NPO status Continue to monitor lipase Pain management Patient seen in collaboration with Dr. Mayo Subjective: Course reviewed with nursing staff Patient interviewed and examined All labs, imaging and other results reviewed The patient states she is feeling better, continue to c/o pain Labs are improving. MRCP without definitive evidence of obstruction Patient with protein S deficiency, if needs procedure in future will need to stop anti-coagulant therapy prior procedure Problems: Exam/Review of Systems Vital Signs Vitals Vital Signs Date Time Temp Pulse Resp B/P Pulse Ox O2 Delivery O2 Flow Rate FiO2 03/04/17 07:00 98.3 67 18 115/55 95 03/03/17 04:45 Room Air Intake and Output 03/03/17 03/03/17 03/04/17 15:00 23:00 07:00 Intake Total 800 ml 1470 ml 1400 ml Balance 800 ml 1470 ml 1400 ml Results Result Diagram: 03/04/17 0608 03/04/17 0607 Results 24 hrs Laboratory Tests Test 03/03/17 15:06 03/03/17 23:36 03/04/17 06:07 03/04/17 06:08 White Blood Count 5.9 # 4.0 #L Red Blood Count 4.14 L 3.84 L Hemoglobin 12.2 11.4 L Hematocrit 37.8 35.2 L Mean Corpuscular Volume 91.3 91.7 Mean Corpuscular Hemoglobin 29.5 29.7 Mean Corpuscular Hemoglobin Concent 32.3 32.4 Red Cell Distribution Width 13.8 14.0 Platelet Count 160 # 132 L Mean Platelet Volume 9.6 9.9 Neutrophils % 76.0 59.7 Lymphocytes % 14.8 L 28.9 Monocytes % 7.1 8.2 Eosinophils % 1.5 2.5 Basophils % 0.3 0.5 Nucleated Red Blood Cells % 0.0 0.0 Neutrophils # 4.5 2.4 Lymphocytes # 0.9 1.2 Monocytes # 0.4 0.3 Eosinophils # 0.1 0.1 Basophils # 0.0 0.0 Nucleated Red Blood Cells # 0.0 0.0 Prothrombin Time 30.2 H 27.7 H 25.8 H Prothrombin Time Ratio 2.4 2.2 2.0 INR International Normalized Ratio 2.84 2.54 2.33 Activated Partial Thromboplast Time 45.5 H > 180.0 *H > 180.0 *H Sodium Level 142 Potassium Level 3.5 Chloride Level 112 H Carbon Dioxide Level 28 Anion Gap 6 L Blood Urea Nitrogen 12 # Creatinine 0.62 Glucose Level 85 Calcium Level 8.0 L Total Bilirubin 0.9 Direct Bilirubin 0.00 Indirect Bilirubin 0.9 Aspartate Amino Transf (AST/SGOT) 22 Alanine Aminotransferase (ALT/SGPT) 38 Alkaline Phosphatase 43 Total Protein 5.2 #L Albumin 2.5 #L Globulin 2.70 Albumin/Globulin Ratio 0.92 Lipase 2719 H Test 03/04/17 08:13 Prothrombin Time 24.2 H Prothrombin Time Ratio 1.9 INR International Normalized Ratio 2.15 Activated Partial Thromboplast Time > 180.0 *H Medications Medications Current Medications Ondansetron HCl (Zofran Inj) 4 mg Q6H PRN IV NAUSEA AND/OR VOMITING; Start at 06:00 Acetaminophen (Tylenol Tab) 650 mg Q6H PRN PO PAIN LEVEL 1-3 OR FEVER; Start 03/03/17 at 06:00 Hydromorphone HCl (Dilaudid) 0.5 mg Q4H PRN IV SEVERE PAIN LEVEL 7-10 Last administered on 03/04/17 08:07; Admin Dose 0.5 MG; Start 03/03/17 at 06:00 Docusate Sodium (Colace) 100 mg Q12H PRN PO CONSTIPATION; Start 03/03/17 at 06 :00 Bisacodyl (Dulcolax) 5 mg DAILY PRN PO CONSTIPATION; Start 03/03/17 at 06:00 Bupropion HCl (Wellbutrin Sr) 150 mg BID PO Last administered on 03/04/17 08: 06; Admin Dose 150 MG; Start 03/03/17 at 21:00 Triamterene/HCTZ (Dyazide) 1 cap DAILY PO Last administered on 03/04/17 08:04 ; Admin Dose 1 CAP; Start 03/04/17 at 09:00 Methimazole (Tapazole) 5 mg DAILY PO Last administered on 03/04/17 08:06; Admin Dose 5 MG; Start 03/04/17 at 09:00 Baclofen (Lioresal) 10 mg TID PO Last administered on 03/04/17 08:05; Admin Dose 10 MG; Start 03/03/17 at 21:00 Trazodone HCl (Desyrel) 50 mg HS PO Last administered on 03/03/17 21:28; Admin Dose 50 MG; Start 03/03/17 at 21:00 Prednisone 4 mg 4 mg DAILY PO Last administered on 03/04/17 08:06; Admin Dose 4 MG; Start 03/04/17 at 09:00 Sodium Chloride (NS) 1,000 ml @ 150 mls/hr Q6H40M IV ; Start 03/04/17 at 09:30 SARAN [place] Mar 04, 2017 10:14
--- NOTE | 2017-03-04 10:23 | PN ---
Date/Time of Note Date/Time of Note DATE: 03/04/17 TIME: 10:13 Assessment/Plan VTE Prophylaxis VTE Prophylaxis Intervention: ambulation, heparin Lines/Catheters IV C[facility]ter Type (from [facility]): Peripheral IV Assessment/Plan Chief Complaint/Hosp Course 76 yo F with h/o IBD (Crohns), protein C and S deficiency admitted for evaluation of ongoing abdominal pain. 1. Gallstone pancreatitis. Lipase trending down nicely. -GI/surgery evaluation appreciated and plan is laparoscopic versus open cholecystectomy with possible cholangiogram intraoperatively. -Continue IV fluids, advance diet as tolerated. -Daily lipase levels. 2. Irritable bowel disease, Crohn's disease. -Continue outpatient steroid regimen. 3. Symptomatic cholelithiasis. No evidence of cholecystitis. -Plan for surgical intervention on Saturday. 4.Protein C and S deficiency: -As per surgery request, warfarin is on hold and patient is on heparin drip. -Patient to continue Coumadin at home dose of 1-2 mg PO daily after discharge. 5.Hyperthyroid: TSH low -Cont home methimazole, obtain freeT3 levels. 6. Essential hypertension. -cont home antihypertensives. 7.Depression/insomnia/chronic pain -Cont home baclofen, bupropion, tazadolene Phalanxes: Heparin/Pepcid Plan: Follow-up with GI/surgery recommendation. Patient was seen in collaboration with . Problems: Subjective 24 Hr Interval Summary Free Text/Dictation Patient with improved pain. She remains afebrile. On heparin gtt. Exam/Review of Systems Vital Signs Vitals Vital Signs Date Time Temp Pulse Resp B/P Pulse Ox O2 Delivery O2 Flow Rate FiO2 03/04/17 07:00 98.3 67 18 115/55 95 03/03/17 04:45 Room Air Intake and Output 03/03/17 03/03/17 03/04/17 15:00 23:00 07:00 Intake Total 800 ml 1470 ml 1400 ml Balance 800 ml 1470 ml 1400 ml Exam General: Well developed,adequately built, not in any acute distress . HEENT: Normocephalic, Atraumatic, No laceration or hematoma; Eyes: PEERL, Conjunctiva clear, Anicteric sclera Neck: Supple without any lymphadenopathy, nontender, no JVD, no carotid bruits, trachea midline, no thyromegaly Cardiac: S1, S2 auscultated, regular rhythm and rate, no mumurs or gallop Pulmonary: Normal respiratory effort. Chest clear to auscultation bilaterally, no adventitious breath sounds GI: Mild right-sided/Epigastric abdominal tenderness. Abdomen normal to inspection. Soft, non- distended, no masses, no rebound tenderness or guarding. Bowel sounds active on all four quadrants Genitourinary: Deferred Extremities: No cyanosis, clubbing, or edema. Pulses [2+] bilaterally. Full ROM on all four extremities. No focal weakness appreciated. Neurologic: Alert to person, place, time, and situation. Affect appropriate, intact sensation. Skin: Clean,dry, and intact. No ecchymosis, no rashes, or lesions Results Result Diagram: 03/04/17 0608 03/04/17 0607 Results 24 hrs Laboratory Tests Test 03/03/17 15:06 03/03/17 23:36 03/04/17 06:07 03/04/17 06:08 White Blood Count 5.9 # 4.0 #L Red Blood Count 4.14 L 3.84 L Hemoglobin 12.2 11.4 L Hematocrit 37.8 35.2 L Mean Corpuscular Volume 91.3 91.7 Mean Corpuscular Hemoglobin 29.5 29.7 Mean Corpuscular Hemoglobin Concent 32.3 32.4 Red Cell Distribution Width 13.8 14.0 Platelet Count 160 # 132 L Mean Platelet Volume 9.6 9.9 Neutrophils % 76.0 59.7 Lymphocytes % 14.8 L 28.9 Monocytes % 7.1 8.2 Eosinophils % 1.5 2.5 Basophils % 0.3 0.5 Nucleated Red Blood Cells % 0.0 0.0 Neutrophils # 4.5 2.4 Lymphocytes # 0.9 1.2 Monocytes # 0.4 0.3 Eosinophils # 0.1 0.1 Basophils # 0.0 0.0 Nucleated Red Blood Cells # 0.0 0.0 Prothrombin Time 30.2 H 27.7 H 25.8 H Prothrombin Time Ratio 2.4 2.2 2.0 INR International Normalized Ratio 2.84 2.54 2.33 Activated Partial Thromboplast Time 45.5 H > 180.0 *H > 180.0 *H Sodium Level 142 Potassium Level 3.5 Chloride Level 112 H Carbon Dioxide Level 28 Anion Gap 6 L Blood Urea Nitrogen 12 # Creatinine 0.62 Glucose Level 85 Calcium Level 8.0 L Total Bilirubin 0.9 Direct Bilirubin 0.00 Indirect Bilirubin 0.9 Aspartate Amino Transf (AST/SGOT) 22 Alanine Aminotransferase (ALT/SGPT) 38 Alkaline Phosphatase 43 Total Protein 5.2 #L Albumin 2.5 #L Globulin 2.70 Albumin/Globulin Ratio 0.92 Lipase 2719 H Test 03/04/17 08:13 Prothrombin Time 24.2 H Prothrombin Time Ratio 1.9 INR International Normalized Ratio 2.15 Activated Partial Thromboplast Time > 180.0 *H Medications Medications Current Medications Ondansetron HCl (Zofran Inj) 4 mg Q6H PRN IV NAUSEA AND/OR VOMITING; Start at 06:00 Acetaminophen (Tylenol Tab) 650 mg Q6H PRN PO PAIN LEVEL 1-3 OR FEVER; Start 03/03/17 at 06:00 Hydromorphone HCl (Dilaudid) 0.5 mg Q4H PRN IV SEVERE PAIN LEVEL 7-10 Last administered on 03/04/17 08:07; Admin Dose 0.5 MG; Start 03/03/17 at 06:00 Docusate Sodium (Colace) 100 mg Q12H PRN PO CONSTIPATION; Start 03/03/17 at 06 :00 Bisacodyl (Dulcolax) 5 mg DAILY PRN PO CONSTIPATION; Start 03/03/17 at 06:00 Bupropion HCl (Wellbutrin Sr) 150 mg BID PO Last administered on 03/04/17 08: 06; Admin Dose 150 MG; Start 03/03/17 at 21:00 Triamterene/HCTZ (Dyazide) 1 cap DAILY PO Last administered on 03/04/17 08:04 ; Admin Dose 1 CAP; Start 03/04/17 at 09:00 Methimazole (Tapazole) 5 mg DAILY PO Last administered on 03/04/17 08:06; Admin Dose 5 MG; Start 03/04/17 at 09:00 Baclofen (Lioresal) 10 mg TID PO Last administered on 03/04/17 08:05; Admin Dose 10 MG; Start 03/03/17 at 21:00 Trazodone HCl (Desyrel) 50 mg HS PO Last administered on 03/03/17 21:28; Admin Dose 50 MG; Start 03/03/17 at 21:00 Prednisone 4 mg 4 mg DAILY PO Last administered on 03/04/17t 08:06; Admin Dose 4 MG; Start 03/04/17 at 09:00 Sodium Chloride (NS) 1,000 ml @ 150 mls/hr Q6H40M IV ; Start 03/04/17 at 09:30 ANGEL FORD NP Mar 04, 2017 10:23
[2017-03-04 11:19] LABS: INR 1.97; PROTIME 22.6 Sec (12.2-14.2); PT RATIO 1.8
[2017-03-04 11:20] LABS: PARTIAL THROMBOPLASTIN TIME 49.1 Sec (25.0-35.0)
[2017-03-04] MEDS: HEPARIN 25000 UNITS/250 ML 250 ML IV SCH ×2 (11:40→20:58)
[2017-03-04 14:00] VITALS: BP 113/56; RESP 20
[2017-03-04 14:05] LABS: INR 2.04; PROTIME 23.2 Sec (12.2-14.2); PT RATIO 1.8
[2017-03-04 14:09] LABS: PARTIAL THROMBOPLASTIN TIME 73.1 Sec (25.0-35.0)
[2017-03-04] MEDS: METOCLOPRAMIDE 10 MG INJ IV SCH ×2 (14:35→18:08)
[2017-03-04 19:15] VITALS: BP 96/53; RESP 17
[2017-03-04] MEDS: FAMOTIDINE 20 MG TAB PO SCH (20:55)
[2017-03-04] MEDS: traZODone 50 MG TAB PO SCH (20:55)
--- NOTE | 2017-03-04 21:42 | CONS ---
Date/Time of Note Date/Time of Note DATE: 03/04/17 TIME: 21:40 Consult Date/Type/Reason Admit Date/Time Mar 03, 2017 at 03:27 Initial Consult Date 03/03/17 Type of Consultation: GENERAL SURGERY Ordering Provider: BETY CUELLAR Subjective Tolerating clears abd pain improving placed on heparin drip Objective Vital Signs Date Time Temp Pulse Resp B/P Pulse Ox O2 Delivery O2 Flow Rate FiO2 03/04/17 19:15 97.9 72 17 96/53 95 03/03/17 04:45 Room Air Intake and Output 03/03/17 03/03/17 03/04/17 15:00 23:00 07:00 Intake Total 800 ml 1470 ml 1400 ml Balance 800 ml 1470 ml 1400 ml Exam a/o x 3 nad abd soft nt nd except for mild RUQ pain Results/Medications Result Diagram: 03/04/17 0608 03/04/17 0607 Results 24 hrs Laboratory Tests Test 03/03/17 23:36 03/04/17 05:59 03/04/17 06:07 03/04/17 06:08 Prothrombin Time 27.7 H 25.8 H Prothrombin Time Ratio 2.2 2.0 INR International Normalized Ratio 2.54 2.33 Activated Partial Thromboplast Time > 180.0 *H > 180.0 *H Free Thyroxine 1.45 Sodium Level 142 Potassium Level 3.5 Chloride Level 112 H Carbon Dioxide Level 28 Anion Gap 6 L Blood Urea Nitrogen 12 # Creatinine 0.62 Glucose Level 85 Calcium Level 8.0 L Total Bilirubin 0.9 Direct Bilirubin 0.00 Indirect Bilirubin 0.9 Aspartate Amino Transf (AST/SGOT) 22 Alanine Aminotransferase (ALT/SGPT) 38 Alkaline Phosphatase 43 Total Protein 5.2 #L Albumin 2.5 #L Globulin 2.70 Albumin/Globulin Ratio 0.92 White Blood Count 4.0 #L Red Blood Count 3.84 L Hemoglobin 11.4 L Hematocrit 35.2 L Mean Corpuscular Volume 91.7 Mean Corpuscular Hemoglobin 29.7 Mean Corpuscular Hemoglobin Concent 32.4 Red Cell Distribution Width 14.0 Platelet Count 132 L Mean Platelet Volume 9.9 Neutrophils % 59.7 Lymphocytes % 28.9 Monocytes % 8.2 Eosinophils % 2.5 Basophils % 0.5 Nucleated Red Blood Cells % 0.0 Neutrophils # 2.4 Lymphocytes # 1.2 Monocytes # 0.3 Eosinophils # 0.1 Basophils # 0.0 Nucleated Red Blood Cells # 0.0 Lipase 2719 H Test 03/04/17 08:13 03/04/17 10:36 03/04/17 13:26 03/04/17 17:20 Prothrombin Time 24.2 H 22.6 H 23.2 H Prothrombin Time Ratio 1.9 1.8 1.8 INR International Normalized Ratio 2.15 1.97 2.04 Activated Partial Thromboplast Time > 180.0 *H 49.1 H 73.1 *H 73.7 *H Free Triiodothyronine (T3) pg/mL 2.78 Medications Current Medications Ondansetron HCl (Zofran Inj) 4 mg Q6H PRN IV NAUSEA AND/OR VOMITING; Start at 06:00 Acetaminophen (Tylenol Tab) 650 mg Q6H PRN PO PAIN LEVEL 1-3 OR FEVER; Start 03/03/17 at 06:00 Hydromorphone HCl (Dilaudid) 0.5 mg Q4H PRN IV SEVERE PAIN LEVEL 7-10 Last administered on 03/04/17 20:55; Admin Dose 0.5 MG; Start 03/03/17 at 06:00 Docusate Sodium (Colace) 100 mg Q12H PRN PO CONSTIPATION; Start 03/03/17 at 06 :00 Bisacodyl (Dulcolax) 5 mg DAILY PRN PO CONSTIPATION; Start 03/03/17 at 06:00 Bupropion HCl (Wellbutrin Sr) 150 mg BID PO Last administered on 03/04/17 20: 55; Admin Dose 150 MG; Start 03/03/17 at 21:00 Triamterene/HCTZ (Dyazide) 1 cap DAILY PO Last administered on 03/04/17 08:04 ; Admin Dose 1 CAP; Start 03/04/17 at 09:00 Methimazole (Tapazole) 5 mg DAILY PO Last administered on 03/04/17 08:06; Admin Dose 5 MG; Start 03/04/17 at 09:00 Baclofen (Lioresal) 10 mg TID PO Last administered on 03/04/17 20:55; Admin Dose 10 MG; Start 03/03/17 at 21:00 Trazodone HCl (Desyrel) 50 mg HS PO Last administered on 03/04/17 20:55; Admin Dose 50 MG; Start 03/03/17 at 21:00 Prednisone 4 mg 4 mg DAILY PO Last administered on 03/04/17 08:06; Admin Dose 4 MG; Start 03/04/17 at 09:00 Sodium Chloride (NS) 1,000 ml @ 150 mls/hr Q6H40M IV Last administered on 19:20; Admin Dose 150 MLS/HR; Start 03/04/17 at 09:30 Famotidine (Pepcid) 20 mg HS PO Last administered on 03/04/17 20:55; Admin Dose 20 MG; Start 03/04/17 at 21:00 Assessment/Plan Chief Complaint/Hosp Course abd pain Problems: Additional Assessment/Plan to OR Saturday for lap choly with IOC if lipase continues to improve toward normal. Risks and benefits explained including bile duct injury, bleeding, infection and need for further surgeries and pt and family agreed to proceed. JT MOSS Mar 04, 2017 21:42
[2017-03-05] MEDS: SOD CHLORIDE 0.9% 1,000 ML IV SCH ×6 (01:49→20:24)
[2017-03-05 02:05] VITALS: BP 133/55; RESP 20
[2017-03-05 05:21] LABS: BASOPHILS % 0.9 % (0.0-2.0); EOSINOPHILS # 0.1 10^3/ul (0.0-0.5); EOSINOPHILS % 2.5 % (0.0-7.0); HEMATOCRIT 35.9 % (37.0-47.0); HEMOGLOBIN 11.5 g/dl (12.0-16.0); LYMPHOCYTES # 1.2 10^3/ul (0.8-2.9); LYMPHOCYTES % 26.1 % (15.0-51.0); MEAN CORPUSCULAR HEMOGLOBIN 29.1 pg (29.0-33.0); MEAN CORPUSCULAR VOLUME 90.9 fl (82.0-101.0); MEAN PLATELET VOLUME 10.3 fl (7.4-10.4); MONOCYTE # 0.5 10^3/ul (0.3-0.9); MONOCYTES % 10.1 % (0.0-11.0); NEUTROPHIL # 2.7 10^3/ul (1.6-7.5); NEUTROPHILS % 60.2 % (39.0-77.0); PLATELET COUNT 122 10^3/UL (140-415); RED BLOOD COUNT 3.95 10^6/ul (4.20-5.40); WHITE BLOOD COUNT 4.4 10^3/ul (4.8-10.8)
[2017-03-05 05:32] LABS: ALBUMIN 2.9 g/dl (3.3-4.9); ALBUMIN/GLOBULIN RATIO 1.2; BILIRUBIN,INDIRECT 0.8 mg/dl (0-1.1); BILIRUBIN,TOTAL 0.8 mg/dl (0.2-1.3); CALCIUM 8.6 mg/dl (8.4-10.2); CREATININE 0.66 mg/dl (0.44-1.00); POTASSIUM 3.4 mmol/L (3.5-5.1); TOTAL PROTEIN 5.3 g/dl (6.1-8.1)
[2017-03-05] MEDS: HYDROmorphONE 0.5 MG/0.5 ML SYG IV PRN ×2 (06:05→20:30)
--- NOTE | 2017-03-05 07:11 | CONS ---
Date/Time of Note Date/Time of Note DATE: 03/05/17 TIME: 07:09 Consult Date/Type/Reason Admit Date/Time Mar 03, 2017 at 03:27 Initial Consult Date 03/03/17 Type of Consultation: GENERAL SURGERY Ordering Provider: BETY CUELLAR Subjective no nausea/vomting abd pain significantly improved Objective Vital Signs Date Time Temp Pulse Resp B/P Pulse Ox O2 Delivery O2 Flow Rate FiO2 03/05/17 02:05 98.3 60 20 133/55 95 03/03/17 04:45 Room Air Intake and Output 03/04/17 03/04/17 03/05/17 15:00 23:00 07:00 Intake Total 66 ml 2683 ml 1814 ml Balance 66 ml 2683 ml 1814 ml Exam abd soft ; LLQ ttp 3/10 pain a/o nad h rrr l cta b Results/Medications Result Diagram: 03/05/17 0450 03/05/17 0450 Results 24 hrs Laboratory Tests Test 03/04/17 08:13 03/04/17 10:36 03/04/17 13:26 03/04/17 17:20 Prothrombin Time 24.2 H 22.6 H 23.2 H Prothrombin Time Ratio 1.9 1.8 1.8 INR International Normalized Ratio 2.15 1.97 2.04 Activated Partial Thromboplast Time > 180.0 *H 49.1 H 73.1 *H 73.7 *H Free Triiodothyronine (T3) pg/mL 2.78 Test 03/04/17 22:26 03/05/17 04:50 Activated Partial Thromboplast Time 78.4 *H 101.7 *H White Blood Count 4.4 L Red Blood Count 3.95 L Hemoglobin 11.5 L Hematocrit 35.9 L Mean Corpuscular Volume 90.9 Mean Corpuscular Hemoglobin 29.1 Mean Corpuscular Hemoglobin Concent 32.0 Red Cell Distribution Width 14.0 Platelet Count 122 L Mean Platelet Volume 10.3 Neutrophils % 60.2 Lymphocytes % 26.1 Monocytes % 10.1 Eosinophils % 2.5 Basophils % 0.9 Nucleated Red Blood Cells % 0.0 Neutrophils # 2.7 Lymphocytes # 1.2 Monocytes # 0.5 Eosinophils # 0.1 Basophils # 0.0 Nucleated Red Blood Cells # 0.0 Sodium Level 144 Potassium Level 3.4 L Chloride Level 112 H Carbon Dioxide Level 27 Anion Gap 8 Blood Urea Nitrogen 7 Creatinine 0.66 Glucose Level 87 Calcium Level 8.6 Total Bilirubin 0.8 Direct Bilirubin 0.00 Indirect Bilirubin 0.8 Aspartate Amino Transf (AST/SGOT) 17 Alanine Aminotransferase (ALT/SGPT) 39 Alkaline Phosphatase 48 Total Protein 5.3 L Albumin 2.9 L Globulin 2.40 Albumin/Globulin Ratio 1.20 Lipase 522 H Medications Current Medications Ondansetron HCl (Zofran Inj) 4 mg Q6H PRN IV NAUSEA AND/OR VOMITING; Start at 06:00 Acetaminophen (Tylenol Tab) 650 mg Q6H PRN PO PAIN LEVEL 1-3 OR FEVER; Start 03/03/17 at 06:00 Hydromorphone HCl (Dilaudid) 0.5 mg Q4H PRN IV SEVERE PAIN LEVEL 7-10 Last administered on 03/05/17 06:05; Admin Dose 0.5 MG; Start 03/03/17 at 06:00 Docusate Sodium (Colace) 100 mg Q12H PRN PO CONSTIPATION; Start 03/03/17 at 06 :00 Bisacodyl (Dulcolax) 5 mg DAILY PRN PO CONSTIPATION; Start 03/03/17 at 06:00 Bupropion HCl (Wellbutrin Sr) 150 mg BID PO Last administered on 03/04/17 20: 55; Admin Dose 150 MG; Start 03/03/17 at 21:00 Triamterene/HCTZ (Dyazide) 1 cap DAILY PO Last administered on 03/04/17 08:04 ; Admin Dose 1 CAP; Start 03/04/17 at 09:00 Methimazole (Tapazole) 5 mg DAILY PO Last administered on 03/04/17 08:06; Admin Dose 5 MG; Start 03/04/17 at 09:00 Baclofen (Lioresal) 10 mg TID PO Last administered on 03/04/17 20:55; Admin Dose 10 MG; Start 03/03/17 at 21:00 Trazodone HCl (Desyrel) 50 mg HS PO Last administered on 03/04/17 20:55; Admin Dose 50 MG; Start 03/03/17 at 21:00 Prednisone 4 mg 4 mg DAILY PO Last administered on 10/23/17at 08:06; Admin Dose 4 MG; Start 03/04/17 at 09:00 Sodium Chloride (NS) 1,000 ml @ 150 mls/hr Q6H40M IV Last administered on 01:49; Admin Dose 150 MLS/HR; Start 03/04/17 at 09:30 Famotidine (Pepcid) 20 mg HS PO Last administered on 03/04/17 20:55; Admin Dose 20 MG; Start 03/04/17 at 21:00 Assessment/Plan Chief Complaint/Hosp Course abd pain Problems: (1) Protein S deficiency (2) Inflammatory bowel disease (ulcerative colitis) (3) Acute gallstone pancreatitis Additional Assessment/Plan Pancreatitis improving Hold heparin drip at 10 AM tomorrow for lap choly with IOC tomorrow at 1 PM NPO JT Victoria Mar 05, 2017 07:11
[2017-03-05 08:25] VITALS: BP 119/58; RESP 18
[2017-03-05] MEDS: TRIAMTERENE/HCTZ (37.5-25) CAP PO SCH ×2 (09:00→09:48)
[2017-03-05] MEDS: METHIMAZOLE 5 MG TAB PO SCH ×2 (09:00→09:48)
[2017-03-05] MEDS ORDERED: POTASSIUM CHLORIDE (SR) 20 MEQ TAB PO STA (09:15)
--- NOTE | 2017-03-05 09:43 | PN ---
Date/Time of Note Date/Time of Note DATE: 03/05/17 TIME: 09:41 Assessment/Plan VTE Prophylaxis VTE Prophylaxis Intervention: ambulation, heparin Lines/Catheters IV [facility] Type (from [facility]): Peripheral IV Urinary Cath still in place: No Assessment/Plan Chief Complaint/Hosp Course 76 yo F with h/o IBD (Crohns), protein C and S deficiency admitted for evaluation of ongoing abdominal pain. 1. Gallstone pancreatitis. Lipase trending down nicely. -GI/surgery evaluation appreciated and plan is laparoscopic versus open cholecystectomy with possible cholangiogram intraoperatively-scheduled for tomorrow. -Continue IV fluids, advance diet as tolerated. -Daily lipase levels. 2. Irritable bowel disease, Crohn's disease. -Continue outpatient steroid regimen. 3. Symptomatic cholelithiasis. No evidence of cholecystitis. -Plan for surgical intervention on Saturday. 4.Protein C and S deficiency: -As per surgery request, warfarin is on hold and patient is on heparin drip. -Patient to continue Coumadin at home dose of 1-2 mg PO daily after discharge. 5.Hyperthyroid -Cont home methimazole 6. Essential hypertension. -cont home antihypertensives. 7.Depression/insomnia/chronic pain -Cont home baclofen, bupropion, tazadolene 8. Hypokalemia. Replete and monitor. Obtain myoglobin in a.m. Phalanxes: Heparin/Pepcid Plan: Keep patient n.p.o. post midnight. Hold heparin 12 hours prior to surgery. Follow-up with GI/surgery recommendation postoperatively. Patient was seen in collaboration with . Problems: Subjective 24 Hr Interval Summary Free Text/Dictation Today, patient with much improved status of pain. She is afebrile. Exam/Review of Systems Vital Signs Vitals Vital Signs Date Time Temp Pulse Resp B/P Pulse Ox O2 Delivery O2 Flow Rate FiO2 03/05/17 08:25 98.5 64 18 119/58 96 03/03/17 04:45 Room Air Intake and Output 03/04/17 03/04/17 03/05/17 15:00 23:00 07:00 Intake Total 66 ml 2683 ml 1814 ml Balance 66 ml 2683 ml 1814 ml Exam General: Well developed,adequately built, not in any acute distress . HEENT: Normocephalic, Atraumatic, No laceration or hematoma; Eyes: PEERL, Conjunctiva clear, Anicteric sclera Neck: Supple without any lymphadenopathy, nontender, no JVD, no carotid bruits, trachea midline, no thyromegaly Cardiac: S1, S2 auscultated, regular rhythm and rate, no mumurs or gallop Pulmonary: Normal respiratory effort. Chest clear to auscultation bilaterally, no adventitious breath sounds GI: Mild right-sided/Epigastric abdominal tenderness. Abdomen normal to inspection. Soft, non- distended, no masses, no rebound tenderness or guarding. Bowel sounds active on all four quadrants Genitourinary: Deferred Extremities: No cyanosis, clubbing, or edema. Pulses [2+] bilaterally. Full ROM on all four extremities. No focal weakness appreciated. Neurologic: Alert to person, place, time, and situation. Affect appropriate, intact sensation. Skin: Clean,dry, and intact. No ecchymosis, no rashes, or lesions Results Result Diagram: 03/05/17 0450 03/05/17 0450 Results 24 hrs Laboratory Tests Test 03/04/17 10:36 03/04/17 13:26 03/04/17 17:20 03/04/17 22:26 Prothrombin Time 22.6 H 23.2 H Prothrombin Time Ratio 1.8 1.8 INR International Normalized Ratio 1.97 2.04 Activated Partial Thromboplast Time 49.1 H 73.1 *H 73.7 *H 78.4 *H Free Triiodothyronine (T3) pg/mL 2.78 Test 03/05/17 04:50 White Blood Count 4.4 L Red Blood Count 3.95 L Hemoglobin 11.5 L Hematocrit 35.9 L Mean Corpuscular Volume 90.9 Mean Corpuscular Hemoglobin 29.1 Mean Corpuscular Hemoglobin Concent 32.0 Red Cell Distribution Width 14.0 Platelet Count 122 L Mean Platelet Volume 10.3 Neutrophils % 60.2 Lymphocytes % 26.1 Monocytes % 10.1 Eosinophils % 2.5 Basophils % 0.9 Nucleated Red Blood Cells % 0.0 Neutrophils # 2.7 Lymphocytes # 1.2 Monocytes # 0.5 Eosinophils # 0.1 Basophils # 0.0 Nucleated Red Blood Cells # 0.0 Activated Partial Thromboplast Time 101.7 *H Sodium Level 144 Potassium Level 3.4 L Chloride Level 112 H Carbon Dioxide Level 27 Anion Gap 8 Blood Urea Nitrogen 7 Creatinine 0.66 Glucose Level 87 Calcium Level 8.6 Total Bilirubin 0.8 Direct Bilirubin 0.00 Indirect Bilirubin 0.8 Aspartate Amino Transf (AST/SGOT) 17 Alanine Aminotransferase (ALT/SGPT) 39 Alkaline Phosphatase 48 Total Protein 5.3 L Albumin 2.9 L Globulin 2.40 Albumin/Globulin Ratio 1.20 Lipase 522 H Medications Medications Current Medications Ondansetron HCl (Zofran Inj) 4 mg Q6H PRN IV NAUSEA AND/OR VOMITING; Start at 06:00 Acetaminophen (Tylenol Tab) 650 mg Q6H PRN PO PAIN LEVEL 1-3 OR FEVER; Start 03/03/17 at 06:00 Hydromorphone HCl (Dilaudid) 0.5 mg Q4H PRN IV SEVERE PAIN LEVEL 7-10 Last administered on 03/05/17 06:05; Admin Dose 0.5 MG; Start 03/03/17 at 06:00 Docusate Sodium (Colace) 100 mg Q12H PRN PO CONSTIPATION; Start 03/03/17 at 06 :00 Bisacodyl (Dulcolax) 5 mg DAILY PRN PO CONSTIPATION; Start 03/03/17 at 06:00 Bupropion HCl (Wellbutrin Sr) 150 mg BID PO Last administered on 03/04/17 20: 55; Admin Dose 150 MG; Start 03/03/17 at 21:00 Triamterene/HCTZ (Dyazide) 1 cap DAILY PO Last administered on 03/04/17 08:04 ; Admin Dose 1 CAP; Start 03/04/17 at 09:00 Methimazole (Tapazole) 5 mg DAILY PO Last administered on 03/04/17 08:06; Admin Dose 5 MG; Start 03/04/17 at 09:00 Baclofen (Lioresal) 10 mg TID PO Last administered on 03/04/17 20:55; Admin Dose 10 MG; Start 03/03/17 at 21:00 Trazodone HCl (Desyrel) 50 mg HS PO Last administered on 03/04/17 20:55; Admin Dose 50 MG; Start 03/03/17 at 21:00 Prednisone 4 mg 4 mg DAILY PO Last administered on 03/04/17 08:06; Admin Dose 4 MG; Start 03/04/17 at 09:00 Sodium Chloride (NS) 1,000 ml @ 150 mls/hr Q6H40M IV Last administered on 01:49; Admin Dose 150 MLS/HR; Start 03/04/17 at 09:30 Famotidine (Pepcid) 20 mg HS PO Last administered on 03/04/17 20:55; Admin Dose 20 MG; Start 03/04/17 at 21:00 ANGEL FORD V. [employer] Mar 05, 2017 09:43
[2017-03-05] MEDS: predniSONE 1 MG TAB PO SCH (09:48)
[2017-03-05] MEDS: BACLOFEN 10 MG TAB PO SCH ×3 (09:48→20:25)
[2017-03-05] MEDS: BUPROPION (SR) 150 MG TAB PO SCH ×2 (09:48→20:25)
--- NOTE | 2017-03-05 13:25 | PN ---
Date/Time of Note Date/Time of Note DATE: 03/05/17 TIME: 13:20 Assessment/Plan VTE Prophylaxis VTE Prophylaxis Intervention: ambulation, SCD's Lines/Catheters IV C[facility]ter Type (from [facility]): Peripheral IV Urinary Cath still in place: No Assessment/Plan Chief Complaint/Hosp Course Assessment: Epigastric pain Pancreatitis * MRCP without definite evidence of cholecystitis or choledocholithiasis positive for cholelithiasis .. Symptomatic cholelithiasis. Irritable bowel disease, Crohn's disease- on steroid therapy Protein C and S deficiency: UTI- treated Plan Lipase trending down- continue to monitor Pain management Tolerated current diet without c/o nausea or vomiting Plan for surgical intervention on tomorrow for symptomatic cholelithiasis. Patient seen in collaboration with Dr. Mayo Subjective: Course reviewed with nursing staff Patient interviewed and examined All labs, imaging and other results reviewed The patient states she is feeling better,pain is improving as well as lipase trend Patient plan for laparoscopic cholecystectomy with intraoperative cholangiogram Problems: Exam/Review of Systems Vital Signs Vitals Vital Signs Date Time Temp Pulse Resp B/P Pulse Ox O2 Delivery O2 Flow Rate FiO2 03/05/17 08:25 98.5 64 18 119/58 96 03/03/17 04:45 Room Air Intake and Output 03/04/17 03/04/17 03/05/17 15:00 23:00 07:00 Intake Total 66 ml 2683 ml 1814 ml Balance 66 ml 2683 ml 1814 ml Exam Constitutional: alert, oriented Psych: no complaints Head: atraumatic, normocephalic Eyes: nl conjunctiva ENMT: nl external ears & nose Neck: non-tender, supple Respiratory: clear to auscultation Cardiovascular: regular rate and rhythm Gastrointestinal: bowel sounds, tender, No ascites, No distended, No firm, No hepatomegaly, No mass, No rebound or guarding, No splenomegaly Musculoskeletal: nl extremities to inspection Extremities: normal pulses Results Result Diagram: 03/05/1744903/05/17449 Results 24 hrs Laboratory Tests Test 03/04/17 13:26 03/04/17 17:20 03/04/17 22:26 03/05/17 04:50 Prothrombin Time 23.2 H Prothrombin Time Ratio 1.8 INR International Normalized Ratio 2.04 Activated Partial Thromboplast Time 73.1 *H 73.7 *H 78.4 *H 101.7 *H White Blood Count 4.4 L Red Blood Count 3.95 L Hemoglobin 11.5 L Hematocrit 35.9 L Mean Corpuscular Volume 90.9 Mean Corpuscular Hemoglobin 29.1 Mean Corpuscular Hemoglobin Concent 32.0 Red Cell Distribution Width 14.0 Platelet Count 122 L Mean Platelet Volume 10.3 Neutrophils % 60.2 Lymphocytes % 26.1 Monocytes % 10.1 Eosinophils % 2.5 Basophils % 0.9 Nucleated Red Blood Cells % 0.0 Neutrophils # 2.7 Lymphocytes # 1.2 Monocytes # 0.5 Eosinophils # 0.1 Basophils # 0.0 Nucleated Red Blood Cells # 0.0 Sodium Level 144 Potassium Level 3.4 L Chloride Level 112 H Carbon Dioxide Level 27 Anion Gap 8 Blood Urea Nitrogen 7 Creatinine 0.66 Glucose Level 87 Calcium Level 8.6 Total Bilirubin 0.8 Direct Bilirubin 0.00 Indirect Bilirubin 0.8 Aspartate Amino Transf (AST/SGOT) 17 Alanine Aminotransferase (ALT/SGPT) 39 Alkaline Phosphatase 48 Total Protein 5.3 L Albumin 2.9 L Globulin 2.40 Albumin/Globulin Ratio 1.20 Lipase 522 H Medications Medications Current Medications Ondansetron HCl (Zofran Inj) 4 mg Q6H PRN IV NAUSEA AND/OR VOMITING; Start at 06:00 Acetaminophen (Tylenol Tab) 650 mg Q6H PRN PO PAIN LEVEL 1-3 OR FEVER; Start 03/03/17 at 06:00 Hydromorphone HCl (Dilaudid) 0.5 mg Q4H PRN IV SEVERE PAIN LEVEL 7-10 Last administered on 03/05/17 06:05; Admin Dose 0.5 MG; Start 03/03/17 at 06:00 Docusate Sodium (Colace) 100 mg Q12H PRN PO CONSTIPATION; Start 03/03/17 at 06 :00 Bisacodyl (Dulcolax) 5 mg DAILY PRN PO CONSTIPATION; Start 03/03/17 at 06:00 Bupropion HCl (Wellbutrin Sr) 150 mg BID PO Last administered on 03/05/17 09: 48; Admin Dose 150 MG; Start 03/03/17 at 21:00 Triamterene/HCTZ (Dyazide) 1 cap DAILY PO Last administered on 03/04/17 08:04 ; Admin Dose 1 CAP; Start 03/04/17 at 09:00 Methimazole (Tapazole) 5 mg DAILY PO Last administered on 03/04/17 08:06; Admin Dose 5 MG; Start 03/04/17 at 09:00 Baclofen (Lioresal) 10 mg TID PO Last administered on 03/05/17 13:16; Admin Dose 10 MG; Start 03/03/17 at 21:00 Trazodone HCl (Desyrel) 50 mg HS PO Last administered on 03/04/17 20:55; Admin Dose 50 MG; Start 03/03/17 at 21:00 Prednisone 4 mg 4 mg DAILY PO Last administered on 03/05/17 09:48; Admin Dose 4 MG; Start 03/04/17 at 09:00 Sodium Chloride (NS) 1,000 ml @ 150 mls/hr Q6H40M IV Last administered on 09:49; Admin Dose 150 MLS/HR; Start 03/04/17 at 09:30 Famotidine (Pepcid) 20 mg HS PO Last administered on 03/04/17 20:55; Admin Dose 20 MG; Start 03/04/17 at 21:00 SARAN COLORADO Mar 05, 2017 13:25
[2017-03-05 15:00] VITALS: BP 126/58; RESP 18
[2017-03-05 19:51] VITALS: BP 131/60; RESP 18
[2017-03-05] MEDS: traZODone 50 MG TAB PO SCH (20:25)
[2017-03-05] MEDS: FAMOTIDINE 20 MG TAB PO SCH (20:25)
[2017-03-06] VITALS (19 sets, daily range): BP systolic 111–149; BP diastolic 53–102; PULSE 65–96; RESP 15–24
[2017-03-06] MEDS: SOD CHLORIDE 0.9% 1,000 ML IV SCH ×2 (02:51→10:07)
[2017-03-06] MEDS: HYDROmorphONE 0.5 MG/0.5 ML SYG IV PRN ×2 (04:06→10:42)
[2017-03-06 05:37] LABS: BASOPHILS % 0.4 % (0.0-2.0); EOSINOPHILS # 0.1 10^3/ul (0.0-0.5); EOSINOPHILS % 1.9 % (0.0-7.0); HEMATOCRIT 35.8 % (37.0-47.0); HEMOGLOBIN 11.5 g/dl (12.0-16.0); LYMPHOCYTES # 0.9 10^3/ul (0.8-2.9); MEAN CORPUSCULAR HEMOGLOBIN 28.9 pg (29.0-33.0); MEAN CORPUSCULAR HGB CONC 32.1 g/dl (32.0-37.0); MEAN CORPUSCULAR VOLUME 89.9 fl (82.0-101.0); MEAN PLATELET VOLUME 10.3 fl (7.4-10.4); MONOCYTE # 0.4 10^3/ul (0.3-0.9); MONOCYTES % 8.7 % (0.0-11.0); NEUTROPHIL # 3.4 10^3/ul (1.6-7.5); NEUTROPHILS % 69.6 % (39.0-77.0); PLATELET COUNT 121 10^3/UL (140-415); RED BLOOD COUNT 3.98 10^6/ul (4.20-5.40); WHITE BLOOD COUNT 4.8 10^3/ul (4.8-10.8)
[2017-03-06 06:23] LABS: ALBUMIN 2.8 g/dl (3.3-4.9); CALCIUM 8.9 mg/dl (8.4-10.2); CREATININE 0.7 mg/dl (0.44-1.00); POTASSIUM 3.7 mmol/L (3.5-5.1); TOTAL PROTEIN 5.6 g/dl (6.1-8.1)
[2017-03-06] MEDS: TRIAMTERENE/HCTZ (37.5-25) CAP PO SCH (09:00)
[2017-03-06] MEDS: METHIMAZOLE 5 MG TAB PO SCH (09:00)
[2017-03-06] MEDS: BUPROPION (SR) 150 MG TAB PO SCH ×2 (09:00→21:00)
[2017-03-06] MEDS: BACLOFEN 10 MG TAB PO SCH ×3 (09:00→20:57)
[2017-03-06] MEDS: predniSONE 1 MG TAB PO SCH (09:00)
--- NOTE | 2017-03-06 10:42 | PN ---
Date/Time of Note Date/Time of Note DATE: 03/06/17 TIME: 10:37 Assessment/Plan VTE Prophylaxis VTE Prophylaxis Intervention: ambulation, heparin Lines/Catheters IV [facility] Type (from [facility]): Peripheral IV Urinary Cath still in place: No Assessment/Plan Chief Complaint/Hosp Course 76 yo F with h/o IBD (Crohns), protein C and S deficiency admitted for evaluation of ongoing abdominal pain. 1. Gallstone pancreatitis. Pancreatitis resolved. Lipase normalized. -GI/surgery evaluation appreciated, scheduled for laparoscopic versus open cholecystectomy with possible cholangiogram intraoperatively -Continue IV fluids, advance diet as tolerated. 2. Irritable bowel disease, Crohn's disease. -Continue outpatient steroid regimen. 3. Symptomatic cholelithiasis. No evidence of cholecystitis. -For cholecystectomy today. 4.Protein C and S deficiency: -Resume heparin postprocedure. -Patient to continue Coumadin at home dose of 1-2 mg PO daily after discharge. 5.Hyperthyroid -Cont home methimazole 6. Essential hypertension. -cont home antihypertensives. 7.Depression/insomnia/chronic pain -Cont home baclofen, bupropion, tazadolene 8. Hypokalemia with hypomagnesemia. Status post repletion. Stable. Continue to monitor. Prophylaxis: Heparin/Pepcid Plan: Follow-up with GI/surgery recommendation postoperatively. Patient was seen in collaboration with . Problems: Subjective 24 Hr Interval Summary Free Text/Dictation No acute distress. Patient is scheduled for surgery today Exam/Review of Systems Vital Signs Vitals Vital Signs Date Time Temp Pulse Resp B/P Pulse Ox O2 Delivery O2 Flow Rate FiO2 03/06/17 07:21 98.7 65 18 128/61 95 03/06/17 04:46 Room Air Intake and Output 03/05/17 03/05/17 03/06/17 15:00 23:00 07:00 Intake Total 450 ml 2170 ml 2255 ml Balance 450 ml 2170 ml 2255 ml Exam General: Well developed,adequately built, not in any acute distress . HEENT: Normocephalic, Atraumatic, No laceration or hematoma; Eyes: PEERL, Conjunctiva clear, Anicteric sclera Neck: Supple without any lymphadenopathy, nontender, no JVD, no carotid bruits, trachea midline, no thyromegaly Cardiac: S1, S2 auscultated, regular rhythm and rate, no mumurs or gallop Pulmonary: Normal respiratory effort. Chest clear to auscultation bilaterally, no adventitious breath sounds GI: Mild right-sided/Epigastric abdominal tenderness. Abdomen normal to inspection. Soft, non- distended, no masses, no rebound tenderness or guarding. Bowel sounds active on all four quadrants Genitourinary: Deferred Extremities: No cyanosis, clubbing, or edema. Pulses [2+] bilaterally. Full ROM on all four extremities. No focal weakness appreciated. Neurologic: Alert to person, place, time, and situation. Affect appropriate, intact sensation. Skin: Clean,dry, and intact. No ecchymosis, no rashes, or lesions Results Result Diagram: 03/06/1751403/06/17514 Results 24 hrs Laboratory Tests Test 03/05/17 14:29 03/05/17 22:05 03/06/17 02:00 03/06/17 05:15 Activated Partial Thromboplast Time 33.7 > 180.0 *H 78.2 *H 54.2 H White Blood Count 4.8 Red Blood Count 3.98 L Hemoglobin 11.5 L Hematocrit 35.8 L Mean Corpuscular Volume 89.9 Mean Corpuscular Hemoglobin 28.9 L Mean Corpuscular Hemoglobin Concent 32.1 Red Cell Distribution Width 14.0 Platelet Count 121 L Mean Platelet Volume 10.3 Neutrophils % 69.6 Lymphocytes % 19.0 Monocytes % 8.7 Eosinophils % 1.9 Basophils % 0.4 Nucleated Red Blood Cells % 0.0 Neutrophils # 3.4 Lymphocytes # 0.9 Monocytes # 0.4 Eosinophils # 0.1 Basophils # 0.0 Nucleated Red Blood Cells # 0.0 Sodium Level 144 Potassium Level 3.7 Chloride Level 116 H Carbon Dioxide Level 23 Anion Gap 9 Blood Urea Nitrogen 6 L Creatinine 0.70 Glucose Level 90 Calcium Level 8.9 Magnesium Level 1.5 L Total Bilirubin 1.0 Direct Bilirubin 0.00 Indirect Bilirubin 1.0 Aspartate Amino Transf (AST/SGOT) 19 Alanine Aminotransferase (ALT/SGPT) 37 Alkaline Phosphatase 49 Total Protein 5.6 L Albumin 2.8 L Globulin 2.80 Albumin/Globulin Ratio 1.00 Lipase 259 Medications Medications Current Medications Ondansetron HCl (Zofran Inj) 4 mg Q6H PRN IV NAUSEA AND/OR VOMITING; Start at 06:00 Acetaminophen (Tylenol Tab) 650 mg Q6H PRN PO PAIN LEVEL 1-3 OR FEVER; Start 03/03/17 at 06:00 Hydromorphone HCl (Dilaudid) 0.5 mg Q4H PRN IV SEVERE PAIN LEVEL 7-10 Last administered on 03/06/17 04:06; Admin Dose 0.5 MG; Start 03/03/17 at 06:00 Docusate Sodium (Colace) 100 mg Q12H PRN PO CONSTIPATION; Start 03/03/17 at 06 :00 Bisacodyl (Dulcolax) 5 mg DAILY PRN PO CONSTIPATION; Start 03/03/17 at 06:00 Bupropion HCl (Wellbutrin Sr) 150 mg BID PO Last administered on 03/05/17 20: 25; Admin Dose 150 MG; Start 03/03/17 at 21:00 Triamterene/HCTZ (Dyazide) 1 cap DAILY PO Last administered on 03/04/17 08:04 ; Admin Dose 1 CAP; Start 03/04/17 at 09:00 Methimazole (Tapazole) 5 mg DAILY PO Last administered on 03/04/17 08:06; Admin Dose 5 MG; Start 03/04/17 at 09:00 Baclofen (Lioresal) 10 mg TID PO Last administered on 03/05/17 20:25; Admin Dose 10 MG; Start 03/03/17 at 21:00 Trazodone HCl (Desyrel) 50 mg HS PO Last administered on 03/05/17 20:25; Admin Dose 50 MG; Start 03/03/17 at 21:00 Prednisone 4 mg 4 mg DAILY PO Last administered on 03/05/17 09:48; Admin Dose 4 MG; Start 03/04/17 at 09:00 Sodium Chloride (NS) 1,000 ml @ 150 mls/hr Q6H40M IV Last administered on 10:07; Admin Dose 150 MLS/HR; Start 03/04/17 at 09:30 Famotidine 20 mg 20 mg HS PO Last administered on 03/05/17 20:25; Admin Dose 20 MG; Start 03/04/17 at 21:00 Magnesium Sulfate (Magnesium Sulfate 2 Gm/50 ml) 50 ml @ 25 mls/hr ONCE ONCE IVPB ; Start 03/06/17 at 11:30; Stop 03/06/17 at 13:29 ANGEL FORD NP Mar 06, 2017 10:42
--- NOTE | 2017-03-06 11:03 | PN ---
Date/Time of Note Date/Time of Note DATE: 03/06/17 TIME: 11:00 Assessment/Plan VTE Prophylaxis VTE Prophylaxis Intervention: ambulation, SCD's Lines/Catheters IV Catheter Type (from [facility]): Peripheral IV Urinary Cath still in place: No Assessment/Plan Chief Complaint/Hosp Course Assessment: Epigastric pain Pancreatitis * MRCP without definite evidence of cholecystitis or choledocholithiasis positive for cholelithiasis .. Symptomatic cholelithiasis/ plan for surgery today Irritable bowel disease, Crohn's disease- on steroid therapy Protein C and S deficiency: UTI- treated Plan Lipase WNL Pain management Surgical intervention today for symptomatic cholelithiasis. Patient seen in collaboration with Dr. Mayo Subjective: Course reviewed with nursing staff Patient interviewed and examined All labs, imaging and other results reviewed The patient states she is feeling well, continues to have some abd pain well controlled with pain medication, Lipase WNL Patient plan for laparoscopic cholecystectomy with intraoperative cholangiogram today Problems: Exam/Review of Systems Vital Signs Vitals Vital Signs Date Time Temp Pulse Resp B/P Pulse Ox O2 Delivery O2 Flow Rate FiO2 03/06/17 07:21 98.7 65 18 128/61 95 03/06/17 04:46 Room Air Intake and Output 03/05/17 03/05/17 03/06/17 15:00 23:00 07:00 Intake Total 450 ml 2170 ml 2255 ml Balance 450 ml 2170 ml 2255 ml Exam Constitutional: alert, oriented Psych: no complaints Head: atraumatic, normocephalic Eyes: nl conjunctiva ENMT: nl external ears & nose Neck: non-tender, supple Respiratory: clear to auscultation Gastrointestinal: bowel sounds, soft, tender, No ascites, No distended, No firm, No hepatomegaly, No mass, No rebound or guarding, No splenomegaly Musculoskeletal: nl extremities to inspection Results Result Diagram: 03/06/1751403/06/1715 Results 24 hrs Laboratory Tests Test 03/05/17 14:29 03/05/17 22:05 03/06/17 02:00 03/06/17 05:15 Activated Partial Thromboplast Time 33.7 > 180.0 *H 78.2 *H 54.2 H White Blood Count 4.8 Red Blood Count 3.98 L Hemoglobin 11.5 L Hematocrit 35.8 L Mean Corpuscular Volume 89.9 Mean Corpuscular Hemoglobin 28.9 L Mean Corpuscular Hemoglobin Concent 32.1 Red Cell Distribution Width 14.0 Platelet Count 121 L Mean Platelet Volume 10.3 Neutrophils % 69.6 Lymphocytes % 19.0 Monocytes % 8.7 Eosinophils % 1.9 Basophils % 0.4 Nucleated Red Blood Cells % 0.0 Neutrophils # 3.4 Lymphocytes # 0.9 Monocytes # 0.4 Eosinophils # 0.1 Basophils # 0.0 Nucleated Red Blood Cells # 0.0 Sodium Level 144 Potassium Level 3.7 Chloride Level 116 H Carbon Dioxide Level 23 Anion Gap 9 Blood Urea Nitrogen 6 L Creatinine 0.70 Glucose Level 90 Calcium Level 8.9 Magnesium Level 1.5 L Total Bilirubin 1.0 Direct Bilirubin 0.00 Indirect Bilirubin 1.0 Aspartate Amino Transf (AST/SGOT) 19 Alanine Aminotransferase (ALT/SGPT) 37 Alkaline Phosphatase 49 Total Protein 5.6 L Albumin 2.8 L Globulin 2.80 Albumin/Globulin Ratio 1.00 Lipase 259 Medications Medications Current Medications Ondansetron HCl (Zofran Inj) 4 mg Q6H PRN IV NAUSEA AND/OR VOMITING; Start at 06:00 Acetaminophen (Tylenol Tab) 650 mg Q6H PRN PO PAIN LEVEL 1-3 OR FEVER; Start 03/03/17 at 06:00 Hydromorphone HCl (Dilaudid) 0.5 mg Q4H PRN IV SEVERE PAIN LEVEL 7-10 Last administered on 03/06/17 10:42; Admin Dose 0.5 MG; Start 03/03/17 at 06:00 Docusate Sodium (Colace) 100 mg Q12H PRN PO CONSTIPATION; Start 03/03/17 at 06 :00 Bisacodyl (Dulcolax) 5 mg DAILY PRN PO CONSTIPATION; Start 03/03/17 at 06:00 Bupropion HCl (Wellbutrin Sr) 150 mg BID PO Last administered on 03/05/17 20: 25; Admin Dose 150 MG; Start 03/03/17 at 21:00 Triamterene/HCTZ (Dyazide) 1 cap DAILY PO Last administered on 03/04/17 08:04 ; Admin Dose 1 CAP; Start 03/04/17 at 09:00 Methimazole (Tapazole) 5 mg DAILY PO Last administered on 03/04/17 08:06; Admin Dose 5 MG; Start 03/04/17 at 09:00 Baclofen (Lioresal) 10 mg TID PO Last administered on 03/05/17 20:25; Admin Dose 10 MG; Start 03/03/17 at 21:00 Trazodone HCl (Desyrel) 50 mg HS PO Last administered on 03/05/17 20:25; Admin Dose 50 MG; Start 03/03/17 at 21:00 Prednisone 4 mg 4 mg DAILY PO Last administered on 03/05/17 09:48; Admin Dose 4 MG; Start 03/04/17 at 09:00 Sodium Chloride (NS) 1,000 ml @ 150 mls/hr Q6H40M IV Last administered on 10:07; Admin Dose 150 MLS/HR; Start 03/04/17 at 09:30 Famotidine 20 mg 20 mg HS PO Last administered on 03/05/17 20:25; Admin Dose 20 MG; Start 03/04/17 at 21:00 Magnesium Sulfate (Magnesium Sulfate 2 Gm/50 ml) 50 ml @ 25 mls/hr ONCE ONCE IVPB ; Start 03/06/17 at 11:30; Stop 03/06/17 at 13:29 SARAN COLORADO Mar 06, 2017 11:03
[2017-03-06] MEDS ORDERED: MAGNESIUM SULFATE 2 GM/50 ML 50 ML IVPB ONE (11:30)
[2017-03-06] MEDS ORDERED: ROCURONIUM 50 MG INJ ONE ×2 (13:00→16:25)
[2017-03-06] MEDS ORDERED: PROPOFOL 20 ML ONE (13:00)
[2017-03-06] MEDS ORDERED: SUCCINYLCHOLINE CHLORIDE 100 MG/5 ML SYG IV ONE (13:00)
[2017-03-06] MEDS ORDERED: METOCLOPRAMIDE 10 MG INJ ONE (13:01)
[2017-03-06] MEDS ORDERED: ONDANSETRON 4 MG INJ ONE (13:01)
[2017-03-06] MEDS ORDERED: FENTAnyl 50 MCG/ML VIAL ONE (13:01)
[2017-03-06] MEDS ORDERED: MEPERIDINE 25 MG INJ IV PRN (13:30)
[2017-03-06] MEDS ORDERED: FENTAnyl 50 MCG/ML VIAL IV PRN ×2 (13:30)
[2017-03-06] MEDS ORDERED: hydrALAzine 20 MG INJ IV PRN (13:30)
[2017-03-06] MEDS ORDERED: LABETALOL HCL 20MG INJ IV PRN (13:30)
[2017-03-06] MEDS ORDERED: HYDROmorphONE (0.2 MG/ML) 10ML SYG IV PRN ×3 (13:30)
[2017-03-06] MEDS ORDERED: ONDANSETRON 4 MG INJ IV PRN (13:30)
[2017-03-06] MEDS ORDERED: IOHEXOL 300MG/ML 30 ML BTL ONE ×2 (13:46→14:02)
[2017-03-06] MEDS ORDERED: BUPIVACAINE 0.5%/EPI (SDV) 30 ML INJ ONE (14:08)
[2017-03-06] MEDS ORDERED: LIDOCAINE 1% (STERILE-PAK) 30 ML INJ ONE (14:08)
[2017-03-06] MEDS ORDERED: ROPIVACAINE 0.5 % 30 ML VIAL ONE (14:31)
[2017-03-06] MEDS ORDERED: CIPRO 400 MG/200 ML D5W IVPB ONE (15:00)
[2017-03-06] MEDS ORDERED: DEXAMETHASONE 4 MG/ML 1 ML INJ ONE (15:19)
[2017-03-06] MEDS ORDERED: HYDROmorphONE 2 MG/ML SYG ONE (15:40)
[2017-03-06] MEDS ORDERED: EPHEDrine SULFATE 50 MG/5 ML SYG ONE (15:48)
--- NOTE | 2017-03-06 17:19 | SIPON ---
Date/Time of Note Date/Time of Note DATE: 03/06/17 TIME: 17:18 Operative Report Preoperative Diagnosis gallstone pancreatitis Postoperative Diagnosis same Operation/Procedure Performed lap choly with IOC Surgeon Jt Moss MD clinical nursing assistant none Anesthesia: general Estimated blood loss: 10 - 50 ml's Transfusion Required none Specimen gallbladder Grafts/Implants none Complications none JT MOSS Mar 06, 2017 17:19
--- NOTE | 2017-03-06 17:28 | OPR ---
Date/Time of Note Date/Time of Note DATE: 03/06/17 TIME: 17:19 Operative Report Procedure Date: Mar 06, 2017 Preoperative Diagnosis gallstone pancreatitis Postoperative Diagnosis same Operation/Procedure Performed laparoscopic cholecystectomy with intraoperative cholangiogram Surgeon Jt Moss MD Celery Tier none Anesthesia Type: general Estimated Blood Loss: 10 - 50 ml's Transfusion none Specimen gallbladder Grafts/Implants none Complications none Pt Condition Post Procedure: stable Disposition: PACU Indications patient with gallstones causing pancreatitis. Now that her abdominal pain has resolved and amylase is normalizing, she requires a cholecystectomy to prevent future recurrence of gallstone related complications. Risks and benefits explained, informed consent obtained. Procedure Description Patient laid supine on OR table. Time out conducted. Abd prepped and draped with Chloraprep. A 5mm incision was made at the midclavicular line at the RUQ 2 cm inferior to the costal margin. The Veress needle was inserted until three clicks were heard. Saline test was normal. The abdomen was insufflated to 15 mmHg. Another 5 mm port was placed laterally at RLQ and at the umbilicus. A 12 mm trocar was inserted at the subxiphoid region for dissection. The area of entry for Veress and all ports were inspected and confirmed to have no injury. The gallbladder was grasped and retracted superiorly. The omental adhesions to it were lysed bluntly with [place] dissector. The cystic duct and artery were dissected at the level of the infundibulum as was the cystic artery right where it bifurcates anteriorly and posteriorly. A praful was made in the cystic duct and a cholangiogram was carried out with Omnipaque, showing no stones occluding the biliary system. Unfortunately the xray machine kept malfunctioning and had to be changed out twice with various diagnostic maneuvers each time until two decent images could be obtained. The first picture did contain the catheter's ballon inlfated but repeat image with balloon deflated confirmed no stones present and confirmed an uninjured CBD. The cystic duct was clipped twice proximally and once distally and transected as was the cystic artery. The gallbladder was then dissected off the liver bed with cautery, placed into an endocatch bag and retrieved through the subxiphoid port. Irrigation with 4 L NS was carried out to remove all spilled bile, no stones were spilled. The liver bed was inspected and confirmed to be hemostatic. The ports were removed under direct visualization and the pneumoperitoneum was desufflated prior to removal of the last port. Pt tolerated the procedure well. JT MOSS Mar 06, 2017 17:28
--- NOTE | 2017-03-06 17:51 | RADRPT ---
PROCEDURE: XR abdomen 3 views. CLINICAL INDICATION: Intraoperative cholangiogram. Right upper quadrant pain. TECHNIQUE: 3 frontal views of the abdomen were obtained in the operating room. COMPARISON: MRCP dated 03/03/2017. FINDINGS: Images demonstrate surgical instruments overlying the right upper quadrant of the abdomen. The gallb ladder is surgically absent. Contrast is injected into the common bile duct with a small catheter. T here is a filling defect in the common bile duct, possibly related to the catheter. There is no othe r filling defect in the common bile duct. Contrast enters the duodenum and the pancreatic duct. Ther e is an inferior vena cava filter with the superior tip at the upper L2 level. 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 IMPRESSION: 1. Intraoperative imaging as described above. RPTAT: QQ .Bull Yates MD, Date Time Electronically viewed and signed by .Bull Yates MD, MD on 03/06/2017 17:49 .R/
[2017-03-06] MEDS: metroNIDAZOLE 500 MG/NS (PMX) 100 ML IVPB SCH ×2 (18:58→21:01)
[2017-03-06 19:46] LABS: HEMATOCRIT 37.9 % (37.0-47.0); HEMOGLOBIN 12.5 g/dl (12.0-16.0)
[2017-03-06] MEDS: traZODone 50 MG TAB PO SCH (20:57)
[2017-03-06] MEDS: FAMOTIDINE 20 MG TAB PO SCH (20:57)
[2017-03-06] MEDS: OXYCODONE/ACETAMINOPHEN (5/325) TAB PO PRN (21:09)
--- NOTE | 2017-03-06 22:19 | CONS ---
Date/Time of Note Date/Time of Note DATE: 03/06/17 TIME: 22:10 Consult Date/Type/Reason Admit Date/Time Mar 03, 2017 at 03:27 Initial Consult Date 03/03/17 Type of Consultation: GENERAL SURGERY Ordering Provider: BETY CUELLAR Subjective pod 0 s/p lap choly. procedure went well. IOC negative for any stones Objective Vital Signs Date Time Temp Pulse Resp B/P Pulse Ox O2 Delivery O2 Flow Rate FiO2 03/06/17 21:16 97.7 78 20 117/56 96 03/06/17 18:45 Nasal Cannula 4.0 Intake and Output 03/05/17 03/05/17 03/06/17 15:00 23:00 07:00 Intake Total 450 ml 2170 ml 2255 ml Balance 450 ml 2170 ml 2255 ml Exam abd soft nd incisional tenderness present wound c/d/i with dressing on Cholangiogram interpreted: Cystic duct grasped with Jessy Hawkins grasper and catheter fed through cystic duct into CBD where instillation showed no stones.. Results/Medications Result Diagram: 03/06/17 1940 03/06/17 0515 Results 24 hrs Laboratory Tests Test 03/06/17 02:00 03/06/17 05:15 03/06/17 11:28 03/06/17 19:40 Activated Partial Thromboplast Time 78.2 *H 54.2 H 34.9 White Blood Count 4.8 Red Blood Count 3.98 L Hemoglobin 11.5 L 12.5 Hematocrit 35.8 L 37.9 Mean Corpuscular Volume 89.9 Mean Corpuscular Hemoglobin 28.9 L Mean Corpuscular Hemoglobin Concent 32.1 Red Cell Distribution Width 14.0 Platelet Count 121 L Mean Platelet Volume 10.3 Neutrophils % 69.6 Lymphocytes % 19.0 Monocytes % 8.7 Eosinophils % 1.9 Basophils % 0.4 Nucleated Red Blood Cells % 0.0 Neutrophils # 3.4 Lymphocytes # 0.9 Monocytes # 0.4 Eosinophils # 0.1 Basophils # 0.0 Nucleated Red Blood Cells # 0.0 Sodium Level 144 Potassium Level 3.7 Chloride Level 116 H Carbon Dioxide Level 23 Anion Gap 9 Blood Urea Nitrogen 6 L Creatinine 0.70 Glucose Level 90 Calcium Level 8.9 Magnesium Level 1.5 L Total Bilirubin 1.0 Direct Bilirubin 0.00 Indirect Bilirubin 1.0 Aspartate Amino Transf (AST/SGOT) 19 Alanine Aminotransferase (ALT/SGPT) 37 Alkaline Phosphatase 49 Total Protein 5.6 L Albumin 2.8 L Globulin 2.80 Albumin/Globulin Ratio 1.00 Lipase 259 Medications Current Medications Ondansetron HCl (Zofran Inj) 4 mg Q6H PRN IV NAUSEA AND/OR VOMITING; Start at 06:00 Acetaminophen (Tylenol Tab) 650 mg Q6H PRN PO PAIN LEVEL 1-3 OR FEVER; Start 03/03/17 at 06:00 Docusate Sodium (Colace) 100 mg Q12H PRN PO CONSTIPATION; Start 03/03/17 at 06 :00 Bisacodyl (Dulcolax) 5 mg DAILY PRN PO CONSTIPATION; Start 03/03/17 at 06:00 Bupropion HCl (Wellbutrin Sr) 150 mg BID PO Last administered on 03/06/17 21: 00; Admin Dose 150 MG; Start 03/03/17 at 21:00 Triamterene/HCTZ (Dyazide) 1 cap DAILY PO Last administered on 03/04/17 08:04 ; Admin Dose 1 CAP; Start 03/04/17 at 09:00 Methimazole (Tapazole) 5 mg DAILY PO Last administered on 03/04/17 08:06; Admin Dose 5 MG; Start 03/04/17 at 09:00 Baclofen (Lioresal) 10 mg TID PO Last administered on 03/06/17 20:57; Admin Dose 10 MG; Start 03/03/17 at 21:00 Trazodone HCl (Desyrel) 50 mg HS PO Last administered on 03/06/17 20:57; Admin Dose 50 MG; Start 03/03/17 at 21:00 Prednisone (Prednisone) 4 mg DAILY PO Last administered on 03/05/17 09:48; Admin Dose 4 MG; Start 03/04/17 at 09:00 Famotidine (Pepcid) 20 mg HS PO Last administered on 03/06/17 20:57; Admin Dose 20 MG; Start 03/04/17 at 21:00 Oxycodone/ Acetaminophen (Percocet (5/ 325)) 1 tab Q4H PRN PO PAIN Last administered on 03/06/17 21:09; Admin Dose 1 TAB; Start 03/06/17 at 17:30 Oxycodone/ Acetaminophen 2 tab 2 tab Q4H PRN PO PAIN; Start 03/06/17 at 17:30 Metronidazole (Flagyl 500 Mg (Pmx)) 100 ml @ 100 mls/hr Q8 IVPB Last administered on 03/06/17t 21:01; Admin Dose 100 MLS/HR; Start 03/06/17 at 18: 30 Assessment/Plan Chief Complaint/Hosp Course abd pain Problems: Additional Assessment/Plan advance diet as tolerated Physical therapy evaluation Patient has an IVC filter; partially protecting her from significant PE from LE emboli. It would therefore be safe to pause anticoagulation until patient is 3 days out from surgery. Please discontinue heparin, check INR and restart coumadin on POD 3 and allow it to slowly become therapeutic. Given elderly age and coagulability disorder (Prot S deficiency) and history of C Diff, would hold patient until POD 3. Flagyl started in PACU; patient with history of C Diff and therefore low index of suspicion for it should exist if pt develops diarrhea; pt received periop abx JT MOSS Mar 06, 2017 22:19
[2017-03-07] VITALS (11 sets, daily range): BP systolic 109–134; BP diastolic 54–72; PULSE 52–82; RESP 16–20
[2017-03-07 01:13] LABS: HEMATOCRIT 36.2 % (37.0-47.0); HEMOGLOBIN 11.8 g/dl (12.0-16.0)
[2017-03-07] MEDS: OXYCODONE/ACETAMINOPHEN (5/325) TAB PO PRN ×3 (02:51→20:17)
[2017-03-07] MEDS: metroNIDAZOLE 500 MG/NS (PMX) 100 ML IVPB SCH ×3 (05:28→20:26)
[2017-03-07 08:22] LABS: ABNORMAL IP MESSAGE 1; HEMATOCRIT 36.6 % (37.0-47.0); HEMOGLOBIN 11.8 g/dl (12.0-16.0); LYMPHOCYTES # 0.5 10^3/ul (0.8-2.9); LYMPHOCYTES % 6.3 % (15.0-51.0); MEAN CORPUSCULAR HEMOGLOBIN 29.3 pg (29.0-33.0); MEAN CORPUSCULAR HGB CONC 32.2 g/dl (32.0-37.0); MEAN CORPUSCULAR VOLUME 90.8 fl (82.0-101.0); MEAN PLATELET VOLUME 10.4 fl (7.4-10.4); MONOCYTE # 0.6 10^3/ul (0.3-0.9); MONOCYTES % 8.3 % (0.0-11.0); NEUTROPHIL # 6.2 10^3/ul (1.6-7.5); NEUTROPHILS % 85.1 % (39.0-77.0); PLATELET COUNT 156 10^3/UL (140-415); RED BLOOD COUNT 4.03 10^6/ul (4.20-5.40); RED CELL DISTRIBUTION WIDTH 13.8 % (11.5-14.5); WHITE BLOOD COUNT 7.3 10^3/ul (4.8-10.8)
[2017-03-07 08:26] LABS: POSITIVE DIFF @See below
[2017-03-07 08:42] LABS: BILIRUBIN,INDIRECT 1.1 mg/dl (0-1.1); BILIRUBIN,TOTAL 1.1 mg/dl (0.2-1.3); CALCIUM 9.1 mg/dl (8.4-10.2); CREATININE 0.68 mg/dl (0.44-1.00); POTASSIUM 4.1 mmol/L (3.5-5.1)
[2017-03-07] MEDS: METHIMAZOLE 5 MG TAB PO SCH (08:56)
[2017-03-07] MEDS: BUPROPION (SR) 150 MG TAB PO SCH ×2 (08:56→20:15)
[2017-03-07] MEDS: BACLOFEN 10 MG TAB PO SCH ×3 (08:56→20:17)
[2017-03-07] MEDS: TRIAMTERENE/HCTZ (37.5-25) CAP PO SCH (08:57)
[2017-03-07] MEDS: predniSONE 1 MG TAB PO SCH (10:12)
--- NOTE | 2017-03-07 11:24 | PN ---
Date/Time of Note Date/Time of Note DATE: 03/07/17 TIME: 11:21 Assessment/Plan VTE Prophylaxis VTE Prophylaxis Intervention: ambulation Lines/Catheters IV C[facility] Type (from [facility] Peripheral IV Urinary Cath still in place: No Assessment/Plan Chief Complaint/Hosp Course 76 yo F with h/o IBD (Crohns), protein C and S deficiency admitted for evaluation of ongoing abdominal pain. 1. Gallstone pancreatitis. Pancreatitis resolved. Lipase normalized. -Status post laparoscopic cholecystectomy with intraoperative cholangiogram-. -Postoperative pain control, antibiotics, anticoagulation and diet advancement per surgery. 2. Irritable bowel disease, Crohn's disease. -Continue outpatient steroid regimen. 3. Symptomatic cholelithiasis. No evidence of cholecystitis. -Status post cholecystectomy 4.Protein C and S deficiency: -As per surgery recommendation, plan is to resume heparin tomorrow. -Patient to continue Coumadin at home dose of 1-2 mg PO daily after discharge. 5.Hyperthyroid -Cont home methimazole 6. Essential hypertension. -cont home antihypertensives. 7.Depression/insomnia/chronic pain -Cont home baclofen, bupropion, tazadolene Prophylaxis: Heparin/Pepcid Plan: Encourage early ambulation and incentive spirometry. Follow-up with surgery recommendations. Patient was seen in collaboration with . Problems: Subjective 24 Hr Interval Summary Free Text/Dictation Overall, patient doing well. She is status post from lap nina and intraoperative cholangiogram. Patient denies any pain. Patient did not have any bowel movement yet. She is also not passing any flatus at this time. Exam/Review of Systems Vital Signs Vitals Vital Signs Date Time Temp Pulse Resp B/P Pulse Ox O2 Delivery O2 Flow Rate FiO2 03/07/17 08:17 56 03/07/17 07:47 98.1 19 126/59 94 03/06/17 20:00 Nasal Cannula 4.0 Intake and Output 03/06/17 03/06/17 03/07/17 15:00 23:00 07:00 Intake Total 595 ml 1400 ml 400 ml Output Total 10 ml Balance 595 ml 1390 ml 400 ml Exam General: Well developed,adequately built, not in any acute distress . HEENT: Normocephalic, Atraumatic, No laceration or hematoma; Eyes: PEERL, Conjunctiva clear, Anicteric sclera Neck: Supple without any lymphadenopathy, nontender, no JVD, no carotid bruits, trachea midline, no thyromegaly Cardiac: S1, S2 auscultated, regular rhythm and rate, no mumurs or gallop Pulmonary: Normal respiratory effort. Chest clear to auscultation bilaterally, no adventitious breath sounds GI: Laparoscopic incisional site remains intact. Abdomen normal to inspection. Soft, non- distended, no masses, no rebound tenderness or guarding. Bowel sounds hypoactive on all quadrants. Genitourinary: Deferred Extremities: No cyanosis, clubbing, or edema. Pulses [2+] bilaterally. Full ROM on all four extremities. No focal weakness appreciated. Neurologic: Alert to person, place, time, and situation. Affect appropriate, intact sensation. Skin: Clean,dry, and intact. No ecchymosis, no rashes, or lesions Results Result Diagram: 03/07/17 0719 03/07/17 0719 Results 24 hrs Laboratory Tests Test 03/06/17 11:28 03/06/17 19:40 03/07/17 00:54 03/07/17 07:19 Activated Partial Thromboplast Time 34.9 Hemoglobin 12.5 11.8 L 11.8 L Hematocrit 37.9 36.2 L 36.6 L White Blood Count 7.3 # Red Blood Count 4.03 L Mean Corpuscular Volume 90.8 Mean Corpuscular Hemoglobin 29.3 Mean Corpuscular Hemoglobin Concent 32.2 Red Cell Distribution Width 13.8 Platelet Count 156 # Mean Platelet Volume 10.4 Neutrophils % 85.1 H Lymphocytes % 6.3 L Monocytes % 8.3 Eosinophils % 0.0 Basophils % 0.0 Nucleated Red Blood Cells % 0.0 Neutrophils # 6.2 Lymphocytes # 0.5 L Monocytes # 0.6 Eosinophils # 0.0 Basophils # 0.0 Nucleated Red Blood Cells # 0.0 Sodium Level 141 Potassium Level 4.1 Chloride Level 109 Carbon Dioxide Level 25 Anion Gap 11 Blood Urea Nitrogen 7 Creatinine 0.68 Glucose Level 114 Calcium Level 9.1 Total Bilirubin 1.1 Direct Bilirubin 0.00 Indirect Bilirubin 1.1 Aspartate Amino Transf (AST/SGOT) 33 Alanine Aminotransferase (ALT/SGPT) 42 Alkaline Phosphatase 53 Total Protein 6.0 L Albumin 3.0 L Globulin 3.00 Albumin/Globulin Ratio 1.00 Medications Medications Current Medications Ondansetron HCl (Zofran Inj) 4 mg Q6H PRN IV NAUSEA AND/OR VOMITING; Start at 06:00 Acetaminophen (Tylenol Tab) 650 mg Q6H PRN PO PAIN LEVEL 1-3 OR FEVER; Start 03/03/17 at 06:00 Docusate Sodium (Colace) 100 mg Q12H PRN PO CONSTIPATION; Start 03/03/17 at 06 :00 Bisacodyl (Dulcolax) 5 mg DAILY PRN PO CONSTIPATION; Start 03/03/17 at 06:00 Bupropion HCl (Wellbutrin Sr) 150 mg BID PO Last administered on 03/07/17 08: 56; Admin Dose 150 MG; Start 03/03/17 at 21:00 Triamterene/HCTZ (Dyazide) 1 cap DAILY PO Last administered on 03/07/17 08:57 ; Admin Dose 1 CAP; Start 03/04/17 at 09:00 Methimazole (Tapazole) 5 mg DAILY PO Last administered on 03/07/17 08:56; Admin Dose 5 MG; Start 03/04/17 at 09:00 Baclofen (Lioresal) 10 mg TID PO Last administered on 03/07/17 08:56; Admin Dose 10 MG; Start 03/03/17 at 21:00 Trazodone HCl (Desyrel) 50 mg HS PO Last administered on 03/06/17 20:57; Admin Dose 50 MG; Start 03/03/17 at 21:00 Prednisone (Prednisone) 4 mg DAILY PO Last administered on 03/07/17 10:12; Admin Dose 4 MG; Start 03/04/17 at 09:00 Famotidine (Pepcid) 20 mg HS PO Last administered on 03/06/17 20:57; Admin Dose 20 MG; Start 03/04/17 at 21:00 Oxycodone/ Acetaminophen (Percocet (5/ 325)) 1 tab Q4H PRN PO PAIN Last administered on 03/07/17 02:51; Admin Dose 1 TAB; Start 03/06/17 at 17:30 Oxycodone/ Acetaminophen 2 tab 2 tab Q4H PRN PO PAIN; Start 03/06/17 at 17:30 Metronidazole (Flagyl 500 Mg (Pmx)) 100 ml @ 100 mls/hr Q8 IVPB Last administered on 03/07/17t 05:28; Admin Dose 100 MLS/HR; Start 03/06/17 at 18: 30 ANGEL FORD NP Mar 07, 2017 11:24
--- NOTE | 2017-03-07 13:20 | PN ---
Date/Time of Note Date/Time of Note DATE: 03/07/17 TIME: 13:19 Assessment/Plan VTE Prophylaxis VTE Prophylaxis Intervention: SCD's Lines/Catheters [facility]from [facility]): Peripheral IV Urinary Cath still in place: No Assessment/Plan Chief Complaint/Hosp Course Assessment: Epigastric pain Pancreatitis * MRCP without definite evidence of cholecystitis or choledocholithiasis positive for cholelithiasis .. Symptomatic cholelithiasis/ plan for surgery today Irritable bowel disease, Crohn's disease- on steroid therapy Protein C and S deficiency: UTI- treated Plan Lipase WNL Pain management S/p lap nina Doing very well Diet per surgery cleared from GI point of view Patient seen in collaboration with Dr. Mayo Subjective: Course reviewed with nursing staff Patient interviewed and examined All labs, imaging and other results reviewed Feeling well, plans to start diet today, ambulating without difficultly abd pain with significant improvement Cleared from Gi point of view Problems: Exam/Review of Systems Vital Signs Vitals Vital Signs Date Time Temp Pulse Resp B/P Pulse Ox O2 Delivery O2 Flow Rate FiO2 03/07/17 12:10 67 03/07/17 11:21 98.1 19 109/54 92 03/06/17 20:00 Nasal Cannula 4.0 Intake and Output 03/06/17 03/06/17 03/07/17 14:59 22:59 06:59 Intake Total 595 ml 1400 ml 400 ml Output Total 10 ml Balance 595 ml 1390 ml 400 ml Results Result Diagram: 03/07/17 0719 03/07/17 0719 Results 24 hrs Laboratory Tests Test 03/06/17 19:40 03/07/17 00:54 03/07/17 07:19 Hemoglobin 12.5 11.8 L 11.8 L Hematocrit 37.9 36.2 L 36.6 L White Blood Count 7.3 # Red Blood Count 4.03 L Mean Corpuscular Volume 90.8 Mean Corpuscular Hemoglobin 29.3 Mean Corpuscular Hemoglobin Concent 32.2 Red Cell Distribution Width 13.8 Platelet Count 156 # Mean Platelet Volume 10.4 Neutrophils % 85.1 H Lymphocytes % 6.3 L Monocytes % 8.3 Eosinophils % 0.0 Basophils % 0.0 Nucleated Red Blood Cells % 0.0 Neutrophils # 6.2 Lymphocytes # 0.5 L Monocytes # 0.6 Eosinophils # 0.0 Basophils # 0.0 Nucleated Red Blood Cells # 0.0 Sodium Level 141 Potassium Level 4.1 Chloride Level 109 Carbon Dioxide Level 25 Anion Gap 11 Blood Urea Nitrogen 7 Creatinine 0.68 Glucose Level 114 Calcium Level 9.1 Total Bilirubin 1.1 Direct Bilirubin 0.00 Indirect Bilirubin 1.1 Aspartate Amino Transf (AST/SGOT) 33 Alanine Aminotransferase (ALT/SGPT) 42 Alkaline Phosphatase 53 Total Protein 6.0 L Albumin 3.0 L Globulin 3.00 Albumin/Globulin Ratio 1.00 Medications Medications Current Medications Ondansetron HCl (Zofran Inj) 4 mg Q6H PRN IV NAUSEA AND/OR VOMITING; Start at 06:00 Acetaminophen (Tylenol Tab) 650 mg Q6H PRN PO PAIN LEVEL 1-3 OR FEVER; Start 03/03/17 at 06:00 Docusate Sodium (Colace) 100 mg Q12H PRN PO CONSTIPATION; Start 03/03/17 at 06 :00 Bisacodyl (Dulcolax) 5 mg DAILY PRN PO CONSTIPATION; Start 03/03/17 at 06:00 Bupropion HCl (Wellbutrin Sr) 150 mg BID PO Last administered on 03/07/17 08: 56; Admin Dose 150 MG; Start 03/03/17 at 21:00 Triamterene/HCTZ (Dyazide) 1 cap DAILY PO Last administered on 03/07/17 08:57 ; Admin Dose 1 CAP; Start 03/04/17 at 09:00 Methimazole (Tapazole) 5 mg DAILY PO Last administered on 03/07/17 08:56; Admin Dose 5 MG; Start 03/04/17 at 09:00 Baclofen (Lioresal) 10 mg TID PO Last administered on 03/07/17 08:56; Admin Dose 10 MG; Start 03/03/17 at 21:00 Trazodone HCl (Desyrel) 50 mg HS PO Last administered on 03/06/17 20:57; Admin Dose 50 MG; Start 03/03/17 at 21:00 Prednisone (Prednisone) 4 mg DAILY PO Last administered on 03/07/17 10:12; Admin Dose 4 MG; Start 03/04/17 at 09:00 Famotidine (Pepcid) 20 mg HS PO Last administered on 10/25/17at 20:57; Admin Dose 20 MG; Start 03/04/17 at 21:00 Oxycodone/ Acetaminophen (Percocet (5/ 325)) 1 tab Q4H PRN PO PAIN Last administered on 03/07/17 11:43; Admin Dose 1 TAB; Start 03/06/17 at 17:30 Oxycodone/ Acetaminophen 2 tab 2 tab Q4H PRN PO PAIN; Start 03/06/17 at 17:30 Metronidazole (Flagyl 500 Mg (Pmx)) 100 ml @ 100 mls/hr Q8 IVPB Last administered on 03/07/17 05:28; Admin Dose 100 MLS/HR; Start 03/06/17 at 18: 30 SARAN COLORADO Mar 07, 2017 13:20
--- NOTE | 2017-03-07 18:55 | PN ---
Date/Time of Note Date/Time of Note DATE: 03/07/17 TIME: 18:52 Assessment/Plan VTE Prophylaxis VTE Prophylaxis Intervention: ambulation Lines/Catheters IV Catheter Type (from [facility]): Peripheral IV Urinary Cath still in place: No Assessment/Plan Chief Complaint/Hosp Course abd pain Problems: Assessment/Plan May DC home Restart coumadin after 72 hours postop, should be safe given pt with IVC filter. Subjective 24 Hr Interval Summary Free Text/Dictation patient doing well. Pain is minimal. toleratingl diet well. Constitutional: improved, no complaints Eyes: no complaints ENT: no complaints Gastrointestinal: flatus, pain (incisional), No decreased appetite, No diarrhea, No nausea, No passing stool, No vomiting Genitourinary: no complaints Exam/Review of Systems Vital Signs Vitals Vital Signs Date Time Temp Pulse Resp B/P Pulse Ox O2 Delivery O2 Flow Rate FiO2 03/07/17 16:12 82 03/07/17 15:14 98.1 19 109/72 95 03/07/17 08:00 Nasal Cannula 2.0 Intake and Output 03/06/17 03/06/17 03/07/17 15:00 23:00 07:00 Intake Total 595 ml 1400 ml 400 ml Output Total 10 ml Balance 595 ml 1390 ml 400 ml Exam Constitutional: alert, oriented, No distress Psych: no complaints Eyes: EOMI, nl conjunctiva, nl lids, nl sclera ENMT: nl external ears & nose, nl lips & teeth Neck: non-tender, supple Respiratory: clear to auscultation, normal air movement Cardiovascular: nl pulses, regular rate and rhythm Gastrointestinal: nl liver, spleen, soft, surgical scars, tender (incisional), No distended, No firm, No hepatomegaly, No rebound or guarding Musculoskeletal: nl extremities to inspection Extremities: normal pulses Neurological: IMMIGRATION PARALEGAL II-XII intact, nl mental status Results Result Diagram: 03/07/1771803/07/17718 Results 24 hrs Laboratory Tests Test 03/06/17 19:40 03/07/17 00:54 03/07/17 07:19 Hemoglobin 12.5 11.8 L 11.8 L Hematocrit 37.9 36.2 L 36.6 L White Blood Count 7.3 # Red Blood Count 4.03 L Mean Corpuscular Volume 90.8 Mean Corpuscular Hemoglobin 29.3 Mean Corpuscular Hemoglobin Concent 32.2 Red Cell Distribution Width 13.8 Platelet Count 156 # Mean Platelet Volume 10.4 Neutrophils % 85.1 H Lymphocytes % 6.3 L Monocytes % 8.3 Eosinophils % 0.0 Basophils % 0.0 Nucleated Red Blood Cells % 0.0 Neutrophils # 6.2 Lymphocytes # 0.5 L Monocytes # 0.6 Eosinophils # 0.0 Basophils # 0.0 Nucleated Red Blood Cells # 0.0 Sodium Level 141 Potassium Level 4.1 Chloride Level 109 Carbon Dioxide Level 25 Anion Gap 11 Blood Urea Nitrogen 7 Creatinine 0.68 Glucose Level 114 Calcium Level 9.1 Total Bilirubin 1.1 Direct Bilirubin 0.00 Indirect Bilirubin 1.1 Aspartate Amino Transf (AST/SGOT) 33 Alanine Aminotransferase (ALT/SGPT) 42 Alkaline Phosphatase 53 Total Protein 6.0 L Albumin 3.0 L Globulin 3.00 Albumin/Globulin Ratio 1.00 Medications Medications Current Medications Ondansetron HCl (Zofran Inj) 4 mg Q6H PRN IV NAUSEA AND/OR VOMITING; Start at 06:00 Acetaminophen (Tylenol Tab) 650 mg Q6H PRN PO PAIN LEVEL 1-3 OR FEVER; Start 03/03/17 at 06:00 Docusate Sodium (Colace) 100 mg Q12H PRN PO CONSTIPATION; Start 03/03/17 at 06 :00 Bisacodyl (Dulcolax) 5 mg DAILY PRN PO CONSTIPATION; Start 03/03/17 at 06:00 Bupropion HCl (Wellbutrin Sr) 150 mg BID PO Last administered on 03/07/17 08: 56; Admin Dose 150 MG; Start 03/03/17 at 21:00 Triamterene/HCTZ (Dyazide) 1 cap DAILY PO Last administered on 03/07/17 08:57 ; Admin Dose 1 CAP; Start 03/04/17 at 09:00 Methimazole (Tapazole) 5 mg DAILY PO Last administered on 03/07/17 08:56; Admin Dose 5 MG; Start 03/04/17 at 09:00 Baclofen (Lioresal) 10 mg TID PO Last administered on 03/07/17 13:29; Admin Dose 10 MG; Start 03/03/17 at 21:00 Trazodone HCl (Desyrel) 50 mg HS PO Last administered on 03/06/17 20:57; Admin Dose 50 MG; Start 03/03/17 at 21:00 Prednisone (Prednisone) 4 mg DAILY PO Last administered on 03/07/17 10:12; Admin Dose 4 MG; Start 03/04/17 at 09:00 Famotidine (Pepcid) 20 mg HS PO Last administered on 03/06/17 20:57; Admin Dose 20 MG; Start 03/04/17 at 21:00 Oxycodone/ Acetaminophen (Percocet (5/ 325)) 1 tab Q4H PRN PO PAIN Last administered on 03/07/17 11:43; Admin Dose 1 TAB; Start 03/06/17 at 17:30 Oxycodone/ Acetaminophen 2 tab 2 tab Q4H PRN PO PAIN; Start 03/06/17 at 17:30 Metronidazole (Flagyl 500 Mg (Pmx)) 100 ml @ 100 mls/hr Q8 IVPB Last administered on 03/07/17 13:29; Admin Dose 100 MLS/HR; Start 03/06/17 at 18: 30 Procedures Procedures lap cholecystectomy with IOC Cholangiogram shows no retained stones. JT MOSS Mar 07, 2017 18:55
[2017-03-07] MEDS: traZODone 50 MG TAB PO SCH (20:17)
[2017-03-07] MEDS: FAMOTIDINE 20 MG TAB PO SCH (20:17)
[2017-03-08] VITALS (7 sets, daily range): BP systolic 128–137; BP diastolic 64–68; PULSE 58–73; RESP 16–19
[2017-03-08] MEDS: OXYCODONE/ACETAMINOPHEN (5/325) TAB PO PRN ×2 (01:08→08:22)
[2017-03-08] MEDS: metroNIDAZOLE 500 MG/NS (PMX) 100 ML IVPB SCH (05:27)
[2017-03-08] MEDS: BUPROPION (SR) 150 MG TAB PO SCH (08:22)
[2017-03-08] MEDS: BACLOFEN 10 MG TAB PO SCH ×2 (08:22→13:00)
[2017-03-08] MEDS: predniSONE 1 MG TAB PO SCH (08:23)
[2017-03-08] MEDS: METHIMAZOLE 5 MG TAB PO SCH (08:24)
[2017-03-08] MEDS: TRIAMTERENE/HCTZ (37.5-25) CAP PO SCH (08:24)
[2017-03-08 08:28] LABS: BASOPHILS % 0.5 % (0.0-2.0); EOSINOPHILS # 0.2 10^3/ul (0.0-0.5); EOSINOPHILS % 3.2 % (0.0-7.0); HEMATOCRIT 34.8 % (37.0-47.0); HEMOGLOBIN 11.2 g/dl (12.0-16.0); LYMPHOCYTES # 1.2 10^3/ul (0.8-2.9); LYMPHOCYTES % 19.9 % (15.0-51.0); MEAN CORPUSCULAR HEMOGLOBIN 28.9 pg (29.0-33.0); MEAN CORPUSCULAR HGB CONC 32.2 g/dl (32.0-37.0); MEAN CORPUSCULAR VOLUME 89.7 fl (82.0-101.0); MEAN PLATELET VOLUME 10.4 fl (7.4-10.4); MONOCYTE # 0.6 10^3/ul (0.3-0.9); MONOCYTES % 9.3 % (0.0-11.0); NEUTROPHILS % 66.8 % (39.0-77.0); PLATELET COUNT 161 10^3/UL (140-415); RED BLOOD COUNT 3.88 10^6/ul (4.20-5.40); RED CELL DISTRIBUTION WIDTH 14.3 % (11.5-14.5)
[2017-03-08 08:58] LABS: ALBUMIN 2.9 g/dl (3.3-4.9); CALCIUM 9.1 mg/dl (8.4-10.2); CREATININE 0.84 mg/dl (0.44-1.00); POTASSIUM 3.4 mmol/L (3.5-5.1); TOTAL PROTEIN 5.8 g/dl (6.1-8.1)
--- NOTE | 2017-03-08 11:13 | PDOCDIS ---
Discharge Instructions CONDITION Patient Condition: Stable HOME CARE INSTRUCTIONS: Special Diet: Regular FOLLOW UP/APPOINTMENTS Follow-up Plan 1.Follow up with on Saturday. Patient not to fly back to [place] until seen by on Saturday. Patient to call the office number to make arrangements to see him on Saturday, if unable to get appointment on Saturday, patient son may call on his cell phone number which was provided. [id number] [facility] [address] [place] [address] Office 2. Follow-up with primary care physician in 1 week If you don't have one please let someone know, we can give you resources that may help you pick one. You may also call your insurance company to assign one to you. Review your medication list with your nurse before leaving and if you need new prescriptions please let your nurse know. I may have made changes to your home medications or given you new prescriptions, please let your primary doctor know as well. Stay compliant with your medications and report any side effects to your PCP or pharmacist. Return to the ER if you have any concerns and cannot reach your doctors or call your insurance company, they usually have a nurse that can help you. 3. Call 911 or go to the nearest emergency room if experiencing loss of consciousness, dizziness, chest pain, shortness of breath, vomiting/abdominal pain, speech difficulties, motor weakness or any unusual symptoms. Other orders : Patient to resume home Coumadin dose, first dose on Saturday PM dose. Patient to do travel arrangements to postpone her flight to another day. Patient is not allowed to fly on Saturday per surgeon. ANGEL FORD NP Mar 08, 2017 11:13
[2017-03-08] MEDS ORDERED: HYDR-906 PO (11:19)
--- NOTE | 2017-03-08 11:19 | PN ---
Date/Time of Note Date/Time of Note DATE: 03/08/17 TIME: 11:17 Assessment/Plan VTE Prophylaxis VTE Prophylaxis Intervention: SCD's Lines/Catheters [facility] [place] Urinary Cath still in place: No Assessment/Plan Chief Complaint/Hosp Course Assessment: Epigastric pain Pancreatitis * MRCP without definite evidence of cholecystitis or choledocholithiasis positive for cholelithiasis .. Symptomatic cholelithiasis- s/p lap nina with cholangiogram Irritable bowel disease, Crohn's disease- on steroid therapy Protein C and S deficiency: UTI- treated Plan Pt doing well, plan of d/c today Min elevation in LFTs- to be expected post cholangiogram Cleared from GI point of view Patient seen in collaboration with Dr. Mayo Subjective: Course reviewed with nursing staff Patient interviewed and examined All labs, imaging and other results reviewed Doing well plan for d/c today Cleared from Gi point of view Problems: Exam/Review of Systems Vital Signs Vitals Vital Signs Date Time Temp Pulse Resp B/P Pulse Ox O2 Delivery O2 Flow Rate FiO2 03/08/17 08:44 61 03/08/17 07:42 98.3 19 137/64 95 03/07/17 08:00 Nasal Cannula 2.0 Intake and Output 03/07/17 03/07/17 03/08/17 15:00 23:00 07:00 Intake Total 1500 ml 500 ml Balance 1500 ml 500 ml Exam Constitutional: alert, oriented Psych: nl mood/affect, no complaints Head: atraumatic, normocephalic Eyes: nl conjunctiva ENMT: nl external ears & nose Neck: non-tender, supple Respiratory: clear to auscultation Cardiovascular: regular rate and rhythm Gastrointestinal: bowel sounds, soft, surgical scars, No distended, No firm, No hepatomegaly, No mass, No rebound or guarding, No splenomegaly Results Result Diagram: 03/08/17 0500 03/08/17 0755 Results 24 hrs Laboratory Tests Test 03/08/17 05:00 03/08/17 07:55 White Blood Count 6.0 Red Blood Count 3.88 L Hemoglobin 11.2 L Hematocrit 34.8 L Mean Corpuscular Volume 89.7 Mean Corpuscular Hemoglobin 28.9 L Mean Corpuscular Hemoglobin Concent 32.2 Red Cell Distribution Width 14.3 Platelet Count 161 Mean Platelet Volume 10.4 Neutrophils % 66.8 Lymphocytes % 19.9 Monocytes % 9.3 Eosinophils % 3.2 Basophils % 0.5 Nucleated Red Blood Cells % 0.0 Neutrophils # 4.0 Lymphocytes # 1.2 Monocytes # 0.6 Eosinophils # 0.2 Basophils # 0.0 Nucleated Red Blood Cells # 0.0 Sodium Level 143 Potassium Level 3.4 L Chloride Level 109 Carbon Dioxide Level 28 Anion Gap 9 Blood Urea Nitrogen 9 Creatinine 0.84 Glucose Level 88 Calcium Level 9.1 Total Bilirubin 1.0 Direct Bilirubin 0.00 Indirect Bilirubin 1.0 Aspartate Amino Transf (AST/SGOT) 207 H Alanine Aminotransferase (ALT/SGPT) 209 H Alkaline Phosphatase 171 #H Total Protein 5.8 L Albumin 2.9 L Globulin 2.90 Albumin/Globulin Ratio 1.00 Medications Medications Current Medications Ondansetron HCl (Zofran Inj) 4 mg Q6H PRN IV NAUSEA AND/OR VOMITING; Start at 06:00 Acetaminophen (Tylenol Tab) 650 mg Q6H PRN PO PAIN LEVEL 1-3 OR FEVER; Start 03/03/17 at 06:00 Docusate Sodium (Colace) 100 mg Q12H PRN PO CONSTIPATION; Start 03/03/17 at 06 :00 Bisacodyl (Dulcolax) 5 mg DAILY PRN PO CONSTIPATION Last administered on 20:26; Admin Dose 5 MG; Start 03/03/17 at 06:00 Bupropion HCl (Wellbutrin Sr) 150 mg BID PO Last administered on 03/08/17 08: 22; Admin Dose 150 MG; Start 03/03/17 at 21:00 Triamterene/HCTZ (Dyazide) 1 cap DAILY PO Last administered on 03/08/17 08:24 ; Admin Dose 1 CAP; Start 03/04/17 at 09:00 Methimazole (Tapazole) 5 mg DAILY PO Last administered on 03/07/17 08:56; Admin Dose 5 MG; Start 03/04/17 at 09:00 Baclofen (Lioresal) 10 mg TID PO Last administered on 03/08/17 08:22; Admin Dose 10 MG; Start 03/03/17 at 21:00 Trazodone HCl (Desyrel) 50 mg HS PO Last administered on 03/07/17 20:17; Admin Dose 50 MG; Start 03/03/17 at 21:00 Prednisone (Prednisone) 4 mg DAILY PO Last administered on 03/08/17 08:23; Admin Dose 4 MG; Start 03/04/17 at 09:00 Famotidine (Pepcid) 20 mg HS PO Last administered on 03/07/17 20:17; Admin Dose 20 MG; Start 03/04/17 at 21:00 Oxycodone/ Acetaminophen (Percocet (5/ 325)) 1 tab Q4H PRN PO PAIN Last administered on 03/07/17 20:17; Admin Dose 1 TAB; Start 03/06/17 at 17:30 Oxycodone/ Acetaminophen 2 tab 2 tab Q4H PRN PO PAIN Last administered on 03/08 08:22; Admin Dose 2 TAB; Start 03/06/17 at 17:30 Metronidazole (Flagyl 500 Mg (Pmx)) 100 ml @ 100 mls/hr Q8 IVPB Last administered on 03/08/17 05:27; Admin Dose 100 MLS/HR; Start 03/06/17 at 18: 30 SARAN [place]ORADO Mar 08, 2017 11:19
[2017-03-08] MEDS ORDERED: [UNRECOGNIZED DRUG - OTHER] (11:24)
[2017-03-08] MEDS ORDERED: COUMADIN (11:24)
--- NOTE | 2017-03-08 14:07 | DS ---
Date/Time of Note Date/Time of Note DATE: 03/08/17 TIME: 14:01 Discharge Summary Admission/Discharge Info Admit Date/Time Mar 03, 2017 at 03:27 Discharge Date/Time Discharge Diagnosis 1. Status post gallstone pancreatitis. Status post laparoscopic cholecystectomy with intraoperative cholangiogram-03/06/2017. 2. Irritable bowel disease, Crohn's disease. 3. Symptomatic cholelithiasis. 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 5.Hyperthyroidism 6. Essential hypertension. 7.Depression/insomnia/chronic pain Patient Condition: Stable Consults , Surgery ,GI Procedures 03/02/2017. CT abdomen and pelvis. IMPRESSION: 1. Distended gallbladder containing gallstones. There is no evidence of cholecystitis. 2. Intrahepatic and extrahepatic biliary ductal dilatation (CBD: 1.0 cm). Correlation with bilirubin levels is recommended. This could be further evaluated with MRCP or ERCP and endoscopic ultrasound, as clinically warranted. 3. Peripancreatic fat infiltration, suggestive of pancreatitis. Correlation with serum amylase and lipase levels is recommended. There is no pancreatic ductal dilatation. 4. Moderate descending and sigmoid colon diverticulosis. 5. Status post hysterectomy and bilateral hip arthroplasties. 6. Mild atherosclerotic arterial calcifications. 7. IVC filter in place with extracaval penetration of the filter tines. 03/03/2017. MRCP. IMPRESSION: 1. Significantly limited exam secondary to respiratory motion artifact. 2. Cholelithiasis, without definite evidence of cholecystitis or choledocholithiasis. 3. Small ascites in the upper quadrants of the abdomen. 4. Trace right pleural effusion. 5. Benign-appearing renal cysts measuring up to 9 mm. 03/06/2017. Operation/Procedure Performed laparoscopic cholecystectomy with intraoperative cholangiogram Hospital Course This is a 76-year-old female with a past medical history of protein S deficiency , IVC filter placed as well as on Coumadin, inflammatory bowel disease Crohn's versus ulcerative colitis, hypothyroidism, hypertension, depression, chronic pain, came in for evaluation of left-sided abdominal pain accompanied with nausea and vomiting. Initial workup revealed gallstones and elevated lipase concerning for gallstone pancreatitis. MRCP showed no ductal defects and LFTs and bilirubin remained at baseline normal. Surgery and gastroenterology consultation was called. Patient was carefully monitored in-house. She was initially kept n.p.o. Coumadin was held and She was bridged on heparin for protein S deficiency. Patient was continued on home steroids for underlying IBS. We will continue to monitor lipase daily and was back to normal. Patient's abdominal pain also improving. On 03/06/2017, patient had undergone laparoscopic cholecystectomy with intraoperative cholangiogram. Postoperatively, patient did well. There was minimal pain. She was continued on prophylactic antibiotics. Her diet was advanced and she was able to tolerate it. At this time, patient is feeling back to baseline. She was able to tolerate ambulation. As per surgery and gastroenterology standpoint, there is no further inpatient workup indicated. Postoperatively, she was noted with elevated LFTs which is expected per surgery and GI standpoint. Disposition: Patient will be discharged home.Patient reported that she was supposed to go to [place] on Saturday. After discussion with surgeon, I recommended patient to cancel her flight and postpone it for another day as she needs to see her surgeon on Saturday prior to any travel. Patient was also provided with Surgeon cell phone in any case if she was unable to get hold of the clinic. Patient was instructed to resume Coumadin 72 hours postoperatively , which will be Saturday night. Patient and family verbalized discharge instructions. Patient was given prescription for pain medications upon discharge. Approximately 60 minutes was spent in coordinating the discharge on this patient. Patient was seen in collaboration with . Home Meds [facility] [employer] [Home Medications] No Conflict Check Nurses unable to get home medications in [facility]. Patient to continue her home medications prescribed by her primary care doctor in [place]. Patient unable to remember the dosage of any of her home medications. However, she takes neuropathy pain medications as well as steroids for IBS. Prov:ANGEL FORD NP 03/08/17 [Coumadin] No Conflict Check CONTINUE HOME DOSE. FIRST DOSE ON SATURDAY PM Prov:ANGEL FORD NP 03/08/17 Hydrocodone/Acetaminophen (Tryon 5-325 Tablet) 1 Each Tablet, 1 EACH PO Q6 for PAIN, #30 TAB Prov:ANGEL FORD NP 03/08/17 Follow-up Plan 1.Follow up with on Saturday. Patient not to fly back to [place] until seen by on Saturday. Patient to call the office number to make arrangements to see him on Saturday, if unable to get appointment on Saturday, patient son may call on his cell phone number which was provided. [address] [place] [address] Office 2. Follow-up with primary care physician in 1 week If you don't have one please let someone know, we can give you resources that may help you pick one. You may also call your insurance company to assign one to you. Review your medication list with your nurse before leaving and if you need new prescriptions please let your nurse know. I may have made changes to your home medications or given you new prescriptions, please let your primary doctor know as well. Stay compliant with your medications and report any side effects to your PCP or pharmacist. Return to the ER if you have any concerns and cannot reach your doctors or call your insurance company, they usually have a nurse that can help you. 3. Call 911 or go to the nearest emergency room if experiencing loss of consciousness, dizziness, chest pain, shortness of breath, vomiting/abdominal pain, speech difficulties, motor weakness or any unusual symptoms. Other orders : Patient to resume home Coumadin dose, first dose on Saturday PM dose. Patient to do travel arrangements to postpone her flight to another day. Patient is not allowed to fly on Saturday per surgeon. Primary Care Provider Care Physician No Primary Pending Labs Laboratory Tests Test 03/08/17 05:00 03/08/17 07:55 White Blood Count 6.010^3/ul (4.8-10.8) Red Blood Count 3.8810^6/ul (4.20-5.40) Hemoglobin 11.2g/dl (12.0-16.0) Hematocrit 34.8% (37.0-47.0) Mean Corpuscular Volume 89.7fl (82.0-101.0) Mean Corpuscular Hemoglobin 28.9pg (29.0-33.0) Mean Corpuscular Hemoglobin Concent 32.2g/dl (32.0-37.0) Red Cell Distribution Width 14.3% (11.5-14.5) Platelet Count 89725^3/UL (140-415) Mean Platelet Volume 10.4fl (7.4-10.4) Neutrophils % 66.8% (39.0-77.0) Lymphocytes % 19.9% (15.0-51.0) Monocytes % 9.3% (0.0-11.0) Eosinophils % 3.2% (0.0-7.0) Basophils % 0.5% (0.0-2.0) Nucleated Red Blood Cells % 0.0/100WBC (0.0-0.0) Neutrophils # 4.010^3/ul (1.6-7.5) Lymphocytes # 1.210^3/ul (0.8-2.9) Monocytes # 0.610^3/ul (0.3-0.9) Eosinophils # 0.210^3/ul (0.0-0.5) Basophils # 0.010^3/ul (0.0-0.1) Nucleated Red Blood Cells # 0.010^3/ul (0.0-0.0) Sodium Level 143mmol/L (135-144) Potassium Level 3.4mmol/L (3.5-5.1) Chloride Level 109mmol/L (97-110) Carbon Dioxide Level 28mmol/L (21-31) Anion Gap 9 (8-16) Blood Urea Nitrogen 9mg/dl (7-20) Creatinine 0.84mg/dl (0.44-1.00) Glucose Level 88mg/dl (70-220) Calcium Level 9.1mg/dl (8.4-10.2) Total Bilirubin 1.0mg/dl (0.2-1.3) Direct Bilirubin 0.00mg/dl (0.00-0.20) Indirect Bilirubin 1.0mg/dl (0-1.1) Aspartate Amino Transf (AST/SGOT) 207IU/L (15-46) Alanine Aminotransferase (ALT/SGPT) 209IU/L (13-69) Alkaline Phosphatase 171IU/L (42-121) Total Protein 5.8g/dl (6.1-8.1) Albumin 2.9g/dl (3.3-4.9) Globulin 2.90g/dl (1.3-3.2) Albumin/Globulin Ratio 1.00 ANGEL FORD NP Mar 08, 2017 14:07
== END 2017-03-08 13:45 | disposition home or self-care (01) | DRG 418 ==
LOC: E/R 22:17 → MS1 03-03 03:27 → TEL 03-06 17:48
PROVIDERS: ADMIT Family Medicine; ATTEND Family Medicine
PROC: BF00YZZ Plain Radiography of Bile Ducts using Other Contrast (ICD-10-PCS; 2017-03-06)
PROC: 0FT44ZZ Resection of Gallbladder, Percutaneous Endoscopic Approach (ICD-10-PCS; principal; 2017-03-06 13:00)
DX: K85.10 Biliary acute pancreatitis without necrosis or infection (principal); K50.90 Crohn's disease, unspecified, without complications; D68.59 Other primary thrombophilia; E05.90 Thyrotoxicosis, unspecified without thyrotoxic crisis or storm; E83.42 Hypomagnesemia; N39.0 Urinary tract infection, site not specified; K80.20 Calculus of gallbladder without cholecystitis without obstruction; F32.9 Major depressive disorder, single episode, unspecified; I10 Essential (primary) hypertension; G47.00 Insomnia, unspecified; G89.29 Other chronic pain; E87.6 Hypokalemia; K58.9 Irritable bowel syndrome, unspecified
CPT/HCPCS: 36415; 71010; 74177; 74181; 74300; 80053; 80061; 81001; 83036; 83690; 83735; 84439; 84443; 84481; 85014; 85018; 85025; 85610; 85730; 87086; 93005; 96374; 96375; C9113; J0696; J0744; J1100; J1170; J1644; J2060; J2270; J2405; J2765; J2795; J3010; J3475; J3480; J7030; J7040; J7120; J7512; Q9967